=== PATIENT | male | born 1955 | race Caucasian/White ===

== ENCOUNTER 2017-01-15 08:58 | Inpatient (IN) ==
[2017-01-15] MEDS ORDERED: MORPHINE IV ONE (09:24)
[2017-01-15] MEDS ORDERED: ZOFRAN IV ONE (09:24)
[2017-01-15] MEDS ORDERED: NS 1,000 ML IV ONE ×2 (09:24→13:01)
[2017-01-15 09:39] LABS: MANUAL DIFF NEEDED? NO
[2017-01-15 10:01] LABS: BASO% 0.3 % (0.0-0.8); EOS# 0.03 X1000 (0.0-0.7); EOS% 0.5 % (0.0-10.0); HEMATOCRIT 39.7 % (42.0-52.0); HEMOGLOBIN 13.8 g/dL (14.0-18.0); LYMPH# 1.68 X1000 (1.2-3.4); LYMPH% 28.3 % (20.5-51.1); MCH 36.3 PG (27-31); MCHC 34.8 g/dL (33-37); MCV 104.5 FL (81-99); MONO# 0.75 X1000 (0.11-0.59); MONO% 12.6 % (1.7-9.3); MPV 10.2 FL (7.4-10.4); NEUT% 58.3 % (42.2-75.2); PLT 64 X1000 (130-400)
[2017-01-15 10:04] LABS: AGAP 14; ALBUMIN 3.4 g/dL (3.5-5.0); ALKALINE PHOSPHATASE 97 U/L (32-122); AMYLASE 62 U/L (20-200); BUN 12 mg/dL (8-22); CALCIUM 8.9 mg/dL (8.8-10.2); CHLORIDE 99 mmol/L (98-107); COSMO 282; GOT 89 U/L (10-34); GPT 50 U/L (10-44); LIPASE 37 U/L (13-60); MAGNESIUM 1.2 mg/dL (1.5-2.7); SODIUM 141 mmol/L (136-145); TCO2 28 mmol/L (25-35); TOTAL BILIRUBIN 1.84 mg/dL (0.20-1.00); TOTAL PROTEIN 8.1 g/dL (6.3-8.3)
[2017-01-15 10:34] LABS: URINE CULTURE NEEDED? NO; URINE SOURCE CLEAN CATCH
[2017-01-15 10:38] LABS: BILIRUBIN URINE SMALL (NEGATIVE); BLOOD URINE NEGATIVE (NEGATIVE); COLOR YELLOW; GLUCOSE URINE NEGATIVE (NEGATIVE); LEUKOCYTES URINE NEGATIVE (NEGATIVE); NITRITE URINE NEGATIVE (NEGATIVE); PH URINE 6.5; PROTEIN URINE 50 mg/dL (NEGATIVE); SP GRAVITY URINE 1.027; TURBIDITY URINE CLEAR (CLEAR); URINE MICRO REVIEW NEEDED? YES; UROBILINOGEN URINE 2 mg/dL (NORMAL)
[2017-01-15 10:40] LABS: UR EPITHELIAL CELLS >10 /HPF (<10); URINE BACTERIA NEGATIVE /HPF; URINE RBC <10 /HPF (<10); URINE WBC <10 /HPF (<10)
[2017-01-15 10:48] LABS: URINE CASTS GRANULAR PRESENT; URINE CRYSTALS NONE SEEN; URINE SMALL ROUND CELLS NONE SEEN
[2017-01-15 10:50] LABS: INR 1.33; PROTIME 14.2 Seconds (9.2-11.7); PTT 30.5 Seconds (22.0-36.0)
--- NOTE | 2017-01-15 12:04 | Diag Imaging Result Doc PS360 ---
EXAM: CT ABD/PELVIS W/ IV CONT ONLY - 01/15/2017 HISTORY: Abd pain TECHNIQUE: With intravenous contrast only per request of the referring provider. Dose reduction protocol. COMPARISON: CT pelvis of 03/16/2014. No comparison CT abdomen is available. FINDINGS: There is mild hepatosplenomegaly. The liver margins appear mildly coarse. These findings may relate to chronic hepatocellular disease (cirrhosis) with some portal hypertension. There is a 1.1 cm fluid density lesion in the liver which is compatible with cyst. There is no other focal liver lesion identified. The gallbladder is mildly distended. There are no calcified gallstones or pericholecystic inflammation identified. There is ill-defined stranding at the bilateral and midline retroperitoneum of the abdomen and pelvis. There are small to borderline retroperitoneal lymph nodes. There is no specific etiology for this identified. The pancreas shows no obvious inflammation. The stranding may be inflammatory or may relate to retroperitoneal fibrosis. There is no adrenal mass identified. The bilateral kidneys enhance homogeneously except for a small left renal cyst. There is no hydronephrosis. There is mild ectasia of the infrarenal abdominal aorta which measures 2.8 cm. There are atherosclerotic calcifications noted. There is no evidence of bowel obstruction. The appendix shows no obvious inflammation. There is no extraluminal gas collection or abscess identified. There is no free air identified. There is mild uncomplicated colonic diverticulosis. IMPRESSION: Mild hepatosplenomegaly and mildly coarse liver margins. This may relate to chronic hepatocellular disease/cirrhosis with mild portal hypertension. Correlation with clinical evaluation is recommended. Mildly distended gallbladder. No calcified gallstones or pericholecystic inflammation seen. Ill-defined inflammation or scarring at the bilateral and midline retroperitoneum. There is no specific etiology for this apparent. Retroperitoneal fibrosis is a possibility. No bowel obstruction. Mild uncomplicated colonic diverticulosis. No abscess. No free air. Electronically signed by Forrest Duffy 01/15/2017 12:02 PM
[2017-01-15] MEDS ORDERED: MAGNESIUM SULFATE 2 GM/S.W.I. 2 GM/50 ML IVPB IV ONE (12:08)
[2017-01-15] MEDS ORDERED: DILAUDID IV ONE (12:15)
[2017-01-15] MEDS ORDERED: LEVAQUIN 750 MG/D5W 750 MG/150 ML IVPB IV ONE (12:40)
[2017-01-15] MEDS ORDERED: FLAGYL 500 MG/NS 500 MG/100 ML IVPB IV ONE (12:40)
--- NOTE | 2017-01-15 12:43 | PROVIDER DOCUMENTATION ---
This chart was entered by Asim Rodríguez Scribe, acting as scribe for Selvin Lara MD. HPI-Abdominal Pain/GI Problem - General Chief Complaint: Abdominal Pain Stated Complaint: ABD PAIN,DIARRHEA X 4DAYS,FEVER Time Seen by Provider: 01/15/17 09:24 Source: patient, family Allergies/Adverse Reactions: Patient Allergies Allergy/AdvReac Type Severity Reaction Status Date / Time Penicillins AdvReac Severe RASH Verified 01/15/17 09:56 Home Medications: Home Medication List Medication Instructions Recorded Confirmed Last Taken Type Aspirin 325 mg PO QAM 09/04/13 01/15/17 1 Day Ago History Atorvastatin Calcium [Lipitor] 40 mg PO QAM 09/04/13 01/15/17 1 Day Ago History Metoprolol [Lopressor] 25 mg PO DAILY 09/04/13 01/15/17 1 Day Ago History Omeprazole [Prilosec] 40 mg PO QAM 09/04/13 01/15/17 1 Day Ago History - History of Present Illness-ABD Nature of Presenting Problems: 61 yo M presents to the ER with complaint of abdominal pain, N/V/D, and fever. PT states his fever was at 102 last night. PT has diarrhea x 3 days, abdominal pain x 1, and N/V x2 days. PT states he drinks 2-3 drinks a night. Abdominal Pain Onset Location: reports: suprapubic Pain Radiation: reports: no radiation Quality of Pain: reports: aching Severity in ED: reports: mild Onset/Duration: reports: 24 hours ago Timing: reports: still present Associated Symptoms: reports: diarrhea, loss of appetite, nausea, vomiting Last BM: 24 hours ago Dark Stools Present?: reports: none noticed Rectal Bleeding: reports: none # of Diarrhea Episodes: 5 (on Thursday) Rectal Pain: reports: none Emesis Description: reports: none Review of Systems - Adult - REVIEW OF SYSTEMS - ADULT Constitutional: reports: fever. denies: chills Cardiovascular: denies: chest pain, palpitations Respiratory: denies: cough, shortness of breath Gastrointestinal: reports: abdominal pain, diarrhea, nausea, poor appetite, vomiting Musculoskeletal: denies: back pain, neck pain All Other Systems: Reviewed and Negative Past History - Adult - PAST MEDICAL HISTORY-ADULT Review of Records: reports: Old Records Reviewed, Nursing Assessment Review, Medications Reviewed, Social history reviewed & non-contributory. Cardiovascular: reports: cardiac disease, hyperlipidemia Respiratory: reports: denies history Gastrointestinal: reports: denies history Genitourinary: reports: denies history Musculoskeletal: reports: denies history Neurological: reports: denies history Endocrine/Immune: reports: denies history Other Conditions: reports: denies history - PRIOR SURGERIES/PROCEDURES Surgical/Procedure History: reports: other (open heart surgery) - PRIOR HOSPITALIZATIONS Prior Hospitalizations: reports: none - IMMUNIZATION STATUS Childhood Immunizations: See Nurse Assessment Flu Vaccine: See Nurse Assessment - FAMILY HISTORY Family History: reviewed, not pertinent - SOCIAL HISTORY Alcohol Use Frequency: every day Physical Exam-General - PHYSICAL EXAM-ADULT Initial Vital Signs Reviewed: Yes - CONSTITUTIONAL General Appearance: appears well, alert, no apparent distress - NECK Neck: non-tender, full range of motion, supple - RESPIRATORY Respiratory: chest non-tender, lungs clear, normal breath sounds - CARDIOVASCULAR Cardiovascular: normal peripheral pulses, regular rate, rhythm - GASTROINTESTINAL (ABDOMEN) Abdominal Exam: normal bowel sounds, soft, tenderness - MUSCULOSKELETAL Extremity: normal range of motion, non-tender, normal gait - SKIN Integumentary: normal color, normal turgor Progress - PLAN OF CARE/RESULTS Progress/Plan/Lab Results: Vital Signs - 8 hr 01/15/17 09:14 Temperature 99.1 F Pulse Rate 81 Respiratory Rate 18 Blood Pressure 130/68 O2 Sat by Pulse Oximetry 100 Orders Category Date Time Status Saline Loc DIRECTED Care 01/15/17 09:24 Active NPO Diet 01/15/17 09:[address] ABD/PELVIS W/ IV CONT ONLY [CT] Stat Exams 01/15/17 09:24 Ordered AMYLASE [CHEM] Stat Lab 01/15/17 09:30 Received CBC WITH ELECTRONIC DIFF [HEME] Stat Lab 01/15/17 09:30 Results COMPREHENSIVE METABOLIC PANEL [CHEM] Stat Lab 01/15/17 09:30 Received LIPASE [CHEM] Stat Lab 01/15/17 09:30 Received MAGNESIUM [CHEM] Stat Lab 01/15/17 09:30 Received URINALYSIS W/POSS RFLX CULT-1 [URINALYSIS] Stat Lab 01/15/17 09:24 Uncollected 0.9% Sodium Chloride Inj [Ns] 1,000 ml Med 01/15/17 09:24 Active IV 999 mls/hr Morphine Med 01/15/17 09:24 Discontinued 4 mg IV NOW ONE Ondansetron [Zofran] Med 01/15/17 09:24 Discontinued 4 mg IV NOW ONE Result Diagrams: 01/15/17 09:30 01/15/17 09:30 - CT/MRI 1 CT Study: Abdomen, Pelvis Impression: Abnormal (mild hepatosplenomegaly and mildy coarse liver margins, may relate to chronic heptaocellular disease/cirrohsis with mild portal hypertension. Mildy distended gallbladder, no calcified gallstones of pericholecystic inflammation. No bowel obstruction.) - CONSULTS/PCP/HOSPITALIST Notification #1 *Consult/PCP/Hospitalist*: Asim/Dr. Bello Time Discussed: 12:42 Consult Disposition: Will see in ED, Admit Departure - Departure Date of Disposition Decision: 01/15/17 Time of Disposition Decision: 12:41 DIAGNOSIS: Continuous severe abdominal pain, Abnormal liver function Disposition: ADMITTED INPATIENT 09 Certified Medical Emergency: Emergent Condition: Stable Referrals and Follow-Ups: Omar Mandujano MD [Primary Care Provider] - - Critical Care Note This patient required my direct & personal management of CC.: No This chart was documented by the indicated scribe, (Asim Rodríguez Scribe) and accurately reflects the services I performed and decisions made by me, Selvin Lara MD, as attested by the provider's signature.
[2017-01-15] MEDS ORDERED: NS 1,000 ML IV SCH (13:01)
[2017-01-15 13:39] LABS: HEMOGLOBIN A1C 5.2 % (4.8-6.0)
[2017-01-15 13:53] LABS: UR AMPHETAMINES QUAL NONE DETECTED (NONE DETECT); UR BARBITUATES QUAL NONE DETECTED (NONE DETECT); UR BENZODIAZEPIN QUAL NONE DETECTED (NONE DETECT); UR CANNABINOIDS QUAL NONE DETECTED (NONE DETECT); UR COCAINE QUAL NONE DETECTED (NONE DETECT); UR METHADONE QUAL NONE DETECTED (NONE DETECT); UR OPIATES QUAL PRESUMPTIVE POSITIVE (NONE DETECT); UR OXYCODONE QUAL NONE DETECTED (NONE DETECT); UR PCP QUAL NONE DETECTED (NONE DETECT)
[2017-01-15] MEDS: M.V.I.-12 10 ML, FOLIC ACID 1 MG, MAGNESIUM SULFATE 1 GM, THIAMINE 100 MG in NS 1,000 ML IV SCH (14:00)
[2017-01-15] MEDS ORDERED: SODIUM CHLORIDE 0.9% 10 ML ONE (14:12)
[2017-01-15] MEDS ORDERED: NS 1,000 ML ONE (14:13)
[2017-01-15] MEDS: PROTONIX IV SCH (14:20)
[2017-01-15 14:30] LABS: ACETAMINOPHEN < 1.2 ug/mL (10-30)
[2017-01-15 14:31] LABS: HDL 18 mg/dL (35-55); IRON SATURATION 20 %; LDL 67 mg/dL; TIBC 227 ug/dL; TOTAL IRON 46 ug/dL (53-167); TRIGLYCERIDES 113 mg/dL (39-160); UNBOUND IRON 181 ug/dL (112-346); VLDL 23 mg/dL
--- NOTE | 2017-01-15 15:05 | Diag Imaging Result Doc PS360 ---
EXAM: CHEST-2 VIEWS HISTORY: wheezing TECHNIQUE: COMPARISON: 09/04/2013 FINDINGS: The lungs are well expanded. The heart is not enlarged. The vessels are not distended. There are no infiltrates. Sternal wires are present. No pleural effusions. IMPRESSION: No acute abnormality. Electronically signed by Azeem Tang 01/15/2017 3:03 PM
--- NOTE | 2017-01-15 15:27 | HISTORY AND PHYSICAL ---
PRIMARY CARE PHYSICIAN: Dr. Omar Mandujano. CHIEF COMPLAINT: Abdominal pain. HISTORY OF PRESENT ILLNESS: Mr. Qureshi is a 61-year-old male with a history of alcohol dependence, coronary artery disease status post bypass grafting, hypertension, hyperlipidemia, who presents to the ER with acute worsening of chronic abdominal pain that started on Thursday. Patient reports that he has been having abdominal pain over the past 2 years, but acutely worsened on Thursday. He describes generalized abdominal pain, but does specifically point to the left lower quadrant. The pain is constant and sharp in nature. It is nonradiating. He has had some associated nausea, vomiting, and diarrhea, more diarrhea than vomiting, but he denies any hematemesis or hematochezia. He denies any melena. He does report that he has had a fever of 102 degrees Fahrenheit last night. He also reports that he has had antibiotic usage completed around 2-3 weeks ago. He had antibiotics for a dental procedure. He denies any chest pain, reports chronic shortness of breath and occasional lower extremity edema. He came to the ER today for evaluation. His labs showed elevated INR, liver function tests and anemia/ thrombocytopenia. CT of the abdomen and pelvis was done and this revealed hepatosplenomegaly, which may relate to chronic hepatocellular disease, Cirrhosis with mild portal hypertension. There was a mildly distended gallbladder, but no evidence of cholecystic inflammation or gallstones and there was also ill-defined inflammation and scarring at the bilateral midline retroperitoneum. As such, the patient is going to be admitted for further treatment and evaluation. PAST MEDICAL HISTORY: 1. Alcohol dependence. 2. Coronary artery disease, status post bypass grafting followed by Dr. Sylvester at the [facility]. 3. Hypertension. 4. Hyperlipidemia. 5. Distant history of atrial fibrillation. 6. Mild LV dysfunction. Last echocardiogram done June of last year showed an EF of 50% with septal hypokinesis. PAST SURGICAL HISTORY: 1. CABG. 2. Hernia repair. SOCIAL HISTORY: Patient reports drinking 3 or more liquor drinks a night. He denies drug use. He has a remote history of smoking. His is at the bedside. Unfortunately , his son committed suicide earlier this year which he reports is causing him significant distress. FAMILY HISTORY: Significant for CAD and CHF. REVIEW OF SYSTEMS: A 14 point review of systems obtained and found to be negative with the exception of the HPI. ALLERGIES: Penicillin. HOME MEDICATIONS: Aspirin 325 mg a.m. Lipitor 40 mg p.o. a.m. Lopressor 25 mg daily. Prilosec 40 mg a.m. PHYSICAL EXAMINATION: VITAL SIGNS: Blood pressure is 130/68, heart rate is 81, respiratory rate 18, O2 saturation 100% on room air. Temperature is 99.1 degrees. GENERAL: This is a chronically ill and disheveled-appearing 61-year-old male, lying in hospital bed in no acute distress. NEUROLOGIC: The patient is awake, alert, and oriented. He follows commands without focal deficits. HEENT: Head is atraumatic and normocephalic. His pupils are equal, round, reactive to light. Sclera are anicteric. Oral mucosa is a bit dry. Trachea is midline. No JVD. No carotid bruits. CHEST: Diminished at the bases with faint expiratory wheezing. CARDIOVASCULAR: Regular rate and rhythm. S1-S2 is noted. There is a 1/6 systolic ejection murmur noted. GI: Diffusely tender. Hepatomegaly noted in the right upper quadrant. No distention. Bowel sounds are hypoactive. EXTREMITIES: Trace edema. Pulses diminished, but palpable bilaterally. DIAGNOSTIC DATA: CT of the abdomen and pelvis: Please see HPI. WBC 5.94, hemoglobin 13.8, hematocrit 39.7, MCV 104.5, platelet count 64,000. PT 14.2, INR 1.33, sodium 141, potassium 4, chloride 99, CO2 28, anion gap 14, BUN 12, creatinine 0.8, glucose 115, magnesium 1.2, iron 46, TIBC 2-7%. Saturation is 20, unsaturated iron binding is 181, T bilirubin 1.4. AST 89, ALT 50, alkaline phosphatase 97, albumin 3.4. Lipase 37. Lactate 1.4. Urine does not show anything acute. Drug screen positive for opiates. ASSESSMENT/PLAN: 1. Abdominal pain: Differential diagnoses are broad and include gastritis, duodenitis, peptic ulcer disease, duodenal ulcer disease, alcoholic hepatitis, viral hepatitis, gastroenteritis, C. difficile pancolitis. A CT of the abdomen and pelvis has already been ordered and shows multiple nonspecific findings, but nothing acute. We will order a right upper quadrant ultrasound and check labs for Tylenol, salicylates, viral hepatitis, alcohol level, drug screen, thyroid function, B12 and folate. We will also check stool studies for typical pathogens, including ova parasites, C. difficile, as well as WBC culture and white cells in the stool. We will keep him nothing per oral, and add IV fluid hydration, pain medications and antiemetics. He has been given a dose of Levaquin and Flagyl in the emergency room. We will hold off on any more antibiotics as he is not febrile, nor does he have leukocytosis or tachycardia. 2. Nausea, vomiting, diarrhea: As above. We will check stool studies for C. difficile given his somewhat recent antibiotic usage. 3. Elevated liver function tests: Again, this is likely secondary to his alcohol use, but comprehensive studies are underway and Gastroenterology has been consulted. 4. Thrombocytopenia: Again, this is likely secondary to chronic alcohol and liver disease, but we are ordering thyroid, B12, folate and comprehensive iron studies. We will follow up on labs and treat accordingly. 5. Coronary artery disease with mild left ventricular dysfunction: Patient reports same Dr. Sylvester in the last 6 months. He does have an echocardiogram done in June, which showed an ejection fraction of 50% with septal wall hypokinesis. We will check a chest x-ray and electrocardiogram and monitor telemetry. He denies any chest pain, but we will go ahead and order a set of cardiac enzymes as well. We will also get a proBNP. 6. Hypertension and hyperlipidemia: We will continue his home medications. Check a lipid panel. 7. Alcohol dependence: Patient has been highly advised to quit drinking. We counseled him strongly on alcohol cessation as this is the likely cause of his admission. The patient was reluctant that he needed help and that he could quit on his own. We explained to him that we can assist him with resources to Alcoholics Anonymous or with clinical social worker. We will continue this education daily. 8. Deep venous thrombosis prophylaxis will be provided with Sequential Compression Devices and TEDs given his thrombocytopenia and elevated liver function tests. Further recommendations to follow. Dictated by YUNI Green for Argentina Bello MD cc: YUNI Green MD David Francis, MD The patient was seen and examined by me. I agree with the assessment and plan as dictated. DAVID
[2017-01-15 15:29] LABS: FREE T4 0.69 ng/dL (0.93-1.70)
--- NOTE | 2017-01-15 16:35 | Diag Imaging Result Doc PS360 ---
EXAM: US ABDOMEN-COMPLETE - 01/15/2017 HISTORY: abdominal pain/elevated lfts TECHNIQUE: Ultrasound abdomen complete COMPARISON: Earlier CT abdomen from today FINDINGS: The liver demonstrates homogeneous echotexture. There is mild splenomegaly. The gallbladder is mildly distended. The gallbladder swanson are possibly slightly thickened. There is no pericholecystic fluid seen. There is no evidence of gallstones. The technologist reports negative sonographic Ramirez's sign. The common bile duct is normal caliber at 4 mm. There is no ascites seen. There are no abnormalities of the bilateral kidneys identified. Visualized portions of the pancreas are unremarkable. The aorta is largely obscured by bowel gas artifacts. The visualized IVC is unremarkable. IMPRESSION: Mild splenomegaly. No visible liver lesion. Mildly distended gallbladder. Slightly thickened gallbladder swanson. No pericholecystic fluid. No evidence of gallstones. Normal caliber common bile duct at 4 mm. Electronically signed by Forrest Duffy 01/15/2017 4:33 PM
[2017-01-15] MEDS: MORPHINE IV PRN ×2 (16:48→21:31)
--- NOTE | 2017-01-15 16:51 | EKG Report ---
Test Performed on : 01/15/2017 2:52:35 PM Test Reason : sob Blood Pressure : / mmHG Vent. Rate : 095 BPM Atrial Rate : 095 BPM P-R Int : 130 ms QRS Dur : 102 ms QT Int : 380 ms P-R-T Axes : 062 000 048 degrees QTc Int : 477 ms Normal sinus rhythm. Cannot rule out Anterior infarct , age undetermined Abnormal ECG No previous ECGs available Confirmed by Dwayne SIMMONS, Vinay Cuevas ([id number]) on 01/16/2017 9:14:17 AM
[2017-01-15 19:32] LABS: MANUAL DIFF NEEDED? NO
[2017-01-15 19:48] LABS: BASO% 0.1 % (0.0-0.8); EOS# 0.01 X1000 (0.0-0.7); EOS% 0.1 % (0.0-10.0); HEMOGLOBIN 13.6 g/dL (14.0-18.0); LYMPH# 1.81 X1000 (1.2-3.4); MCH 36.3 PG (27-31); MCHC 34.9 g/dL (33-37); MONO# 0.96 X1000 (0.11-0.59); MONO% 11.7 % (1.7-9.3); MPV 10.3 FL (7.4-10.4); NEUT% 66.1 % (42.2-75.2); PLT 62 X1000 (130-400); RBC 3.75 XMIL (4.7-6.1)
[2017-01-15 20:00] LABS: AGAP 14; ALBUMIN 3.2 g/dL (3.5-5.0); ALKALINE PHOSPHATASE 77 U/L (32-122); BUN 12 mg/dL (8-22); CALCIUM 8.1 mg/dL (8.8-10.2); CHLORIDE 97 mmol/L (98-107); COSMO 267; GOT 74 U/L (10-34); GPT 42 U/L (10-44); POTASSIUM 3.6 mmol/L (3.5-5.1); SODIUM 133 mmol/L (136-145); TCO2 22 mmol/L (25-35); TOTAL BILIRUBIN 1.84 mg/dL (0.20-1.00); TOTAL PROTEIN 7.5 g/dL (6.3-8.3)
[2017-01-15] MEDS: FLAGYL 250 MG/NS 250 MG/50 ML IVPB IV SCH (20:09)
[2017-01-15] MEDS: NS 1,000 ML IV SCH ×2 (21:18→23:51)
--- NOTE | 2017-01-15 21:58 | CONSULTATION ---
DATE OF CONSULTATION: 01/15/2017 REFERRING PHYSICIAN: Argentina Bello M.D. PRIMARY CARE PROVIDER: Omar Mandujano M.D. INDICATION FOR CONSULTATION: 1. Nausea with vomiting. 2. Diarrhea. 3. Abdominal pain. 4. Abnormal CT scan. 5. Abnormal ultrasound with gallbladder thickening. 6. Iron-deficiency anemia. 7. Newly diagnosed cirrhosis. 8. Newly diagnosed portal hypertension on CT scan. 9. Hepatosplenomegaly. 10. New retroperitoneal fibrosis. 11. Fever. 12. Diverticulosis. HISTORY OF PRESENT ILLNESS: The patient is a 61-year-old white male who has a longstanding history of alcohol dependence. He states that he underwent an EGD and colonoscopy in 2014 by Angelita Muñiz MD. At that time, he was found to have diverticulitis and reflux disease. He states that he was unhappy with that diagnosis as he had a family member who lost part of their colon secondary to severe diverticulitis. He was then evaluated by Timothy Crain MD who found colon polyps in his left colon. He states that following his endoscopy in [address] Crain, he developed left lower quadrant pain that has been chronic over the last 2 years. In the last week, he states the pain has been significantly worse to the point that he was unable to sit or move. He also had the onset of nausea with vomiting, diarrhea, fever and chills. At home, his temperature reached a peak of 102-103 degrees. He was also recently on antibiotics for a dental procedure approximately 2 weeks prior to his admission. He presented to the emergency room and was found to have an elevated PT and INR. On CT scan, he was noted to have mild hepatosplenomegaly, chronic hepatic cellular disease consistent with cirrhosis, portal hypertension, mild gallbladder distention, but no stones, stranding in the retroperitoneal area consistent with fibrosis, borderline retroperitoneal lymph nodes, left renal cyst, an ectatic infrarenal abdominal aortic aneurysm to 2.8 cm and mild uncomplicated diverticulosis. On ultrasound, he was found to have mild hepatosplenomegaly as noted on the CT scan , mildly distended gallbladder with thickened gallbladder swanson, but no pericholecystic fluid. There was no evidence of gallstones. His serum chemistries were notable for mild anemia with thrombocytopenia, an INR of 1.33, and elevated liver function tests. We are asked to participate in his care. PAST MEDICAL HISTORY: 1. Remarkable for chronic alcohol use. He states that he drinks 3 vodka in juice drinks per day averaging 3-4 ounces per drink. His daily intake typically averages about 10 ounces of vodka per day and he has consumed this quantity for over 40 years. 2. Chronic tobacco use in the past where he smoked 3 packs per day for 27-28 years. He stopped smoking approximately 26 years ago. 3. Coronary artery disease status post bypass. His critical care physician is Dr. Francisco Javier Sylvester at the [facility]. 4. Hypertension. 5. Hyperlipidemia. 6. History of atrial fibrillation. 7. Left ventricular dysfunction. 8. Diverticulosis. 9. Colon polyps. 10. Hemorrhoids. 11. GERD. PAST SURGICAL HISTORY: 1. CABG. 2. Hiatal hernia repair. SOCIAL HISTORY: The patient drinks vodka with orange juice at least 6-7 days per week. He consumes approximately 10 ounces of vodka per day. He denies recreational drug use. He has a remote smoking history as noted above. His and daughter are at bedside. They report that his alcohol intake has increased considerably since August to September as his son committed suicide and has resulted in significant increase in the patient's stress level. FAMILY HISTORY: Remarkable for coronary artery disease. Congestive heart failure. He denies a history of colon cancer, stomach cancer, or inflammatory bowel disease. REVIEW OF SYSTEMS: Remarkable for nausea with vomiting, diarrhea, abdominal pain, fatigue and concerns for diverticulitis as his pain is primarily in the left lower quadrant. MEDICATION ALLERGIES: Penicillin. HOME MEDICATIONS: 1. Aspirin. 2. Lipitor. 3. Lopressor. 4. Prilosec. PHYSICAL EXAMINATION: General: On exam, he is in no acute distress but is very uncomfortable. Vital signs: His blood pressure is 137/53, pulse is 91-100, respiration 20, temperature of 102.4 degrees. He has active chills and rigors during the exam. HEENT: Negative for jaundice. His oropharyngeal mucosa membranes are dry. Pulmonary: Lungs are clear to auscultation with normal expiratory effort. Cardiovascular: Reveals a resting tachycardia with a pulse rate of 100 at the time of my exam. Abdominal: Reveals hyperactive bowel sounds. The abdomen is soft with moderate left lower quadrant tenderness, but no rebound or guarding. Rectal: Deferred. It should be noted that the patient was incontinent during our exam. Extremities: Bilaterally are negative for cyanosis, clubbing, or edema. OBJECTIVE DATA: Reveals a hemoglobin of 13.8 with hematocrit of 39.7, and a white count of 5.94. He has 64,000 platelets. His PT is 14.2 with an INR of 1.33, and a PTT of 30.5. His sodium is 141, potassium 4, chloride 99, CO2 28, BUN 12, creatinine 0.8 with a glucose of 115. His calcium is 8.9, magnesium 1.2, total bilirubin 1.84, AST 89, ALT 50, alkaline phosphatase 97, total protein 8.1 and albumin 3.4. His ferritin is 854 and his iron is 46, consistent with iron deficiency anemia. His B12 level is 386 with a folic acid of 11.4, and a TSH of 1.32. His plasma lactate is 1.4. IMPRESSION: 1. Nausea with vomiting. 2. Diarrhea. 3. Left lower quadrant pain. 4. Alcohol abuse. 5. Elevated liver function tests. 6. Gallbladder thickening on ultrasound and computed tomography scan. 7. Fever. 8. New retroperitoneal fibrosis. 9. Hepatosplenomegaly. 10. Cirrhosis. 11. Portal hypertension. 12. Iron-deficiency anemia. 13. Diverticulosis. RECOMMENDATION: 1. The patient has multiple gastrointestinal concerns. Because of his fever and diarrhea, I would submit stool for stool studies for Clostridium difficile colitis as he was recently treated with antibiotics. I visualized the stool that the patient passed while I was performing his history and physical. It is mucoid and foul smelling with a tinge of blood. 2. Once the stool studies have been submitted, I would begin Levaquin and Flagyl for treatment for diverticulitis versus colitis versus Clostridium difficile. 3. Please also check blood cultures, stool cultures, fecal white blood cell, ova and parasite and stool lactoferrin. 4. Please check a C-reactive protein, repeat a complete blood count and complete metabolic panel. 5. Because of the elevated liver function tests, I would check a hepatitis profile. He will also need a HIDA scan to rule out acute cholecystitis. 6. The patient has a longstanding history of alcohol abuse. Therefore, I agree with the vitamin supplementation, particularly thiamine and folate. I would monitor for withdrawals and delirium tremors. 7. With regard to his elevated liver function tests, our evaluation will depend on the trend. If his liver tests continue to rise, he may need a possible endoscopic retrograde cholangiopancreatography once we have the results of his HIDA scan. 8. The peritoneal fibrosis seen on computed tomography is of unknown significance. Because of the patient's other issues, I would reassess that in 1-2 days. 9. The patient has iron-deficiency anemia. Once the acute febrile process has been treated, I recommend a repeat esophagogastroduodenoscopy and colonoscopy, especially in light of his history of colon polyps. 10. He has unexplained hepatosplenomegaly. His evaluation will depend on the results of his aforementioned testing. 11. Please check a C-reactive protein daily to assess his degree of inflammation. 12. Please monitor daily PT/INR in light of his ongoing liver disease. 13. I agree with Protonix 40 mg IV q.12 hours. If he has a drop in hemoglobin, I would have a low threshold for transitioning this to a Protonix drip. 14. The patient has severe abdominal cramps with the diarrhea. I would place him on Levsin 0.125 mg sublingual to help control the abdominal spasms as I suspect an IBS component. 15. Please consult Surgery as he may require a cholecystectomy in the near future depending on the results of his ongoing evaluation. 16. Additional recommendations to follow based on his clinical course. More than 65 minutes spent with the patient, family and involved in the patient' s direct evaluation and assessment. cc: MD Argentina Che MD David Francis, MD Jason R. Seale, MD MTDD
--- NOTE | 2017-01-15 22:07 | CONSULTATION ---
DATE OF CONSULTATION: 01/15/2017 REASON FOR CONSULTATION: Abdominal pain. HISTORY OF PRESENT ILLNESS: This is a 61-year-old male with known chronic daily left lower quadrant pain for 2 years which is usually relieved after bowel movements who was in his usual state of health until 4 days ago when he started experiencing severe diarrhea up to 10 times per day, along with intermittent fevers, chills and increasing left lower abdominal pain radiating across to his right side. No relieving factors. It is worsened to movement or pressure on it. It is not actually relieved with bowel movements. He has not noticed any blood in his bowel movements. Of note, he did take some antibiotics several weeks ago for a tooth infection and he cannot recall the name of it. PAST MEDICAL HISTORY: Alcohol abuse, coronary artery disease, hypertension, hyperlipidemia, atrial fibrillation, left ventricular dysfunction, chronic intermittent low back pain PAST SURGICAL HISTORY: Coronary artery bypass grafting. Hernia repair. HOME MEDICATIONS: Aspirin, Lipitor, Lopressor, Prilosec. ALLERGIES: Penicillin. FAMILY HISTORY: Coronary artery disease and congestive heart failure. SOCIAL HISTORY: He drinks several alcoholic drinks of hard liquor every day. He denies illicit drug use. He quit smoking years ago. He is . He has son who apparently committed suicide earlier this year. 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 REVIEW OF SYSTEMS: Ten systems reviewed. He does have chronic lobe intermittent low back pain. Otherwise, the systems were reviewed and are negative except as noted above. PHYSICAL EXAMINATION: Vital Signs: Temperature 98.6 degrees, pulse 102, respirations 18, blood pressure 129/62. General: Well-developed well-nourished male who looks ill, but nontoxic appearing. HEENT: Normocephalic, atraumatic. Extraocular muscles intact. Pupils equal, round, reactive to light. Sclerae anicteric. Neck: Supple. No thyromegaly. CARDIOVASCULAR: Tachycardic and regular. Respiratory: Bilateral breath sounds. No work of breathing. Gastrointestinal: Soft, nondistended. He is tender across his lower abdomen more focally in the left lower quadrant. No rebound or guarding. No hernia or mass appreciated. Skin: He feels febrile, but he is not clammy. Extremities: No clubbing, cyanosis, or edema. Musculoskeletal: Moves all extremities equally and well. LABORATORY: White blood cell count 8. Hemoglobin 13.6, platelet count 62,000. INR 1.3, sodium 133, potassium 3.6, chloride , BUN 12, creatinine 0.9, glucose 107, total bilirubin 1.8, AST 74, ALT 42, alkaline phosphatase 77, total bilirubin 1.8. Albumin 3.2. Amylase 62, lipase 37, lactate 1.4. IMAGING: An abdominal and pelvis CT scan was reviewed by me and the imaging and report indicate a mildly distended gallbladder without stones or surrounding pericholecystic inflammation. There is mild hepatosplenomegaly with possible portal hypertension. There is some vague inflammatory stranding or scarring bilaterally and across the midline in the retroperitoneum possibly due to retroperitoneal fibrosis. There is no bowel obstruction. No diverticulitis, abscess, free air, et cetera. Abdominal ultrasound was reviewed and again, the gallbladder was mildly distended with possibly some slightly thickened swanson; however, there is no pericholecystic fluid and no evidence of gallstones. The sonographic Ramirez sign was negative. The common bile duct is normal. There is no ascites. There is mild splenomegaly and no visible liver lesion. Microbiology data: A C. difficile antigen and toxin is positive. ASSESSMENT AND PLAN: This is a 61-year-old male with Clostridium difficile colitis. At this time, I would characterize this as a moderate case without complication requiring surgical intervention. I think he is at higher risk secondary to his chronic alcohol abuse and likely cirrhosis. He is on intravenous Flagyl. I think we should have a low threshold to add oral vancomycin if he does not respond soon. Levaquin could probably be stopped. I will follow along for any worsening of disease or complications that may or may not develop. cc: Miguel Rivas MD
[2017-01-15] MEDS: LIBRIUM PO SCH (22:54)
[2017-01-15] MEDS: ATIVAN IV PRN (22:56)
[2017-01-16] MEDS: PROTONIX IV SCH ×2 (01:15→14:26)
[2017-01-16] MEDS: FLAGYL 250 MG/NS 250 MG/50 ML IVPB IV SCH ×4 (01:15→19:53)
[2017-01-16] MEDS: MORPHINE IV PRN ×5 (01:17→22:18)
[2017-01-16] MEDS: ATIVAN IV PRN ×3 (04:33→20:02)
[2017-01-16] MEDS: LIBRIUM PO SCH ×4 (04:33→22:18)
[2017-01-16 05:52] LABS: HEMATOCRIT 37.1 % (42.0-52.0); HEMOGLOBIN 12.9 g/dL (14.0-18.0); MCH 36.4 PG (27-31); MCHC 34.8 g/dL (33-37); MCV 104.8 FL (81-99); MPV 10.7 FL (7.4-10.4); RBC 3.54 XMIL (4.7-6.1)
[2017-01-16] MEDS ORDERED: PNEUMOVAX 23 IM ONE (06:07)
[2017-01-16 06:11] LABS: AGAP 15; ALBUMIN 3.1 g/dL (3.5-5.0); ALKALINE PHOSPHATASE 68 U/L (32-122); BUN 17 mg/dL (8-22); CALCIUM 7.8 mg/dL (8.8-10.2); CHLORIDE 98 mmol/L (98-107); COSMO 272; GOT 63 U/L (10-34); GPT 36 U/L (10-44); POTASSIUM 3.4 mmol/L (3.5-5.1); SODIUM 135 mmol/L (136-145); TCO2 22 mmol/L (25-35); TOTAL BILIRUBIN 2.03 mg/dL (0.20-1.00); TOTAL PROTEIN 7.1 g/dL (6.3-8.3)
[2017-01-16] MEDS: LOPRESSOR PO SCH (08:02)
--- NOTE | 2017-01-16 08:49 | Diag Imaging Result Doc PS360 ---
EXAM: ABDOMEN FLAT/UPRIGHT HISTORY: abdominal pain TECHNIQUE: Flat and upright abdomen two views COMMENT: There is some retained contrast medium in the urinary bladder. The bowel gas pattern is nonspecific. There is no evidence organomegaly or mass. IMPRESSION: Nonspecific abdomen. Electronically signed by Albert Chopra 01/16/2017 8:47 AM
[2017-01-16] MEDS: LEVSIN-SL SL SCH ×3 (09:22→17:23)
[2017-01-16 10:01] LABS: HEPATITIS PROFILE ACUTE SEE COMMENTS
[2017-01-16] MEDS: VANCOCIN PO SCH ×3 (10:26→19:53)
[2017-01-16] MEDS: CULTURELLE PO SCH ×2 (10:30→20:02)
--- NOTE | 2017-01-16 12:42 | PROGRESS NOTE ---
DATE: 01/16/2017 SUBJECTIVE: The patient says he feels some better. He continues to have frequent diarrhea. OBJECTIVE: He is afebrile this morning. Pulse 73, respirations 18, blood pressure 111/59, O2 saturation 98%.General: Well-developed male in no distress. He looks his stated age. CV: Regular rate and rhythm. Respiratory: No work of breathing. GI: Soft. Mildly tender in the left lower quadrant. No rebound or guarding. Nondistended. LABORATORY: White blood cell count 9.5, hemoglobin 12.9. Electrolytes are reviewed and unremarkable. Total bilirubin 2.0. IMAGING: An abdominal x-ray today shows a nonspecific bowel-gas pattern. ASSESSMENT AND PLAN: This is a 61-year-old male with Clostridium difficile colitis. He is being treated with IV Flagyl and oral vancomycin. I think we can advance his diet over the weekend as tolerated. There are no surgical plans at this time. cc: Miguel Rivas MD
[2017-01-16] MEDS ORDERED: LEVAQUIN 750 MG/D5W 750 MG/150 ML IVPB IV SCH (13:00)
[2017-01-16] MEDS ORDERED: NS 1,000 ML ONE (14:11)
--- NOTE | 2017-01-16 14:11 | PROGRESS NOTE ---
DATE: 01/16/2017 SUBJECTIVE: The patient complains of continued episodes of diarrhea. There are 7 episodes recorded in the chart. OBJECTIVE: Vital Signs: Temperature 98.7 degrees, blood pressure 111/59, heart rate 73, respirations 18, O2 saturations 98% on room air. General: This is an elderly male, lying in bed, in no acute distress. Head: Normocephalic atraumatic. Heart: S1, S2. Normal. Regular rate and rhythm. Lungs: Clear to auscultation bilaterally. No crackles. No rales. Abdomen: Positive bowel sounds. Soft, nontender, nondistended. Extremities: No edema. No cyanosis. No calf tenderness. Neurologic: The patient is alert and oriented x3. No focal neurologic deficits noted. LABS: White blood cell count 9.5, hemoglobin 12, hematocrit 37, platelets 64,000. Sodium 135, potassium 3.4, chloride 98, CO2 24, BUN 17, creatinine 1, glucose 113, calcium 7.8. Total bilirubin 2, AST 63, ALT 236, alkaline phosphatase 68, albumin 3.1. ASSESSMENT AND PLAN: 1. C. difficile colitis. Continue on Flagyl and oral vancomycin. Will also add lactobacillus. GI is following. 2. Chronic thrombocytopenia. Most likely secondary to the patient's underlying liver disease. 3. Alcoholic liver cirrhosis. Aware. 4. Portal hypertension with splenomegaly. Aware. 5. Hypokalemia. Will replace the patient's potassium. 6. Alcohol dependence. The patient has been counseled about alcohol cessation. The patient will be started on Librium. We will monitor the patient closely for withdrawal. 7. Gastrointestinal prophylaxis. Continue on IV Protonix. cc: Argentina Bello MD
[2017-01-16] MEDS: SODIUM CHLORIDE 0.9% INJ SCH (14:26)
[2017-01-16] MEDS: NS 1,000 ML IV SCH (14:27)
[2017-01-16] MEDS: M.V.I.-12 10 ML, FOLIC ACID 1 MG, MAGNESIUM SULFATE 1 GM, THIAMINE 100 MG in NS 1,000 ML IV SCH (14:30)
[2017-01-17] MEDS: ATIVAN IV PRN ×3 (00:47→10:26)
[2017-01-17] MEDS: PROTONIX IV SCH ×2 (00:48→14:25)
[2017-01-17] MEDS: SODIUM CHLORIDE 0.9% INJ SCH ×2 (00:48→14:25)
[2017-01-17] MEDS: NS 1,000 ML IV SCH ×3 (00:54→22:35)
[2017-01-17] MEDS: VANCOCIN PO SCH ×4 (00:59→22:34)
[2017-01-17] MEDS: FLAGYL 250 MG/NS 250 MG/50 ML IVPB IV SCH ×4 (00:59→22:34)
[2017-01-17] MEDS: MORPHINE IV PRN ×4 (02:31→18:54)
[2017-01-17] MEDS: LIBRIUM PO SCH ×4 (05:15→22:34)
[2017-01-17 07:09] LABS: HEMATOCRIT 35.1 % (42.0-52.0); HEMOGLOBIN 11.9 g/dL (14.0-18.0); MCH 36.8 PG (27-31); MCHC 33.9 g/dL (33-37); MCV 108.7 FL (81-99); RBC 3.23 XMIL (4.7-6.1)
[2017-01-17 07:19] LABS: AGAP 11; ALBUMIN 2.7 g/dL (3.5-5.0); ALKALINE PHOSPHATASE 62 U/L (32-122); BUN 19 mg/dL (8-22); CALCIUM 7.3 mg/dL (8.8-10.2); CHLORIDE 102 mmol/L (98-107); COSMO 274; GOT 53 U/L (10-34); GPT 30 U/L (10-44); POTASSIUM 3.3 mmol/L (3.5-5.1); SODIUM 136 mmol/L (136-145); TCO2 23 mmol/L (25-35); TOTAL BILIRUBIN 2.37 mg/dL (0.20-1.00); TOTAL PROTEIN 6.6 g/dL (6.3-8.3)
[2017-01-17] MEDS ORDERED: KLOR-CON PO ONE (07:39)
[2017-01-17] MEDS: LOPRESSOR PO SCH (08:08)
[2017-01-17] MEDS: CULTURELLE PO SCH ×2 (08:08→22:34)
[2017-01-17] MEDS: LEVSIN-SL SL SCH ×3 (08:08→22:34)
[2017-01-17] MEDS ORDERED: CALCIUM GLUCONATE 1 GM in NS 50 ML IV ONE (10:46)
[2017-01-17] MEDS: M.V.I.-12 10 ML, FOLIC ACID 1 MG, MAGNESIUM SULFATE 1 GM, THIAMINE 100 MG in NS 1,000 ML IV SCH (14:24)
--- NOTE | 2017-01-17 15:25 | PROGRESS NOTE ---
DATE: 01/17/2017 Mr. Noe Qureshi is a 61-year-old white male who was admitted with abdominal distention and pain. He also had diarrhea and it has been discovered that he has C. difficile colitis. He is being treated for this with Flagyl and vancomycin and symptomatically he is improving daily. He was given a regular diet today. Please notify us if needed. cc: Erma Galeano MD
--- NOTE | 2017-01-17 17:00 | PROGRESS NOTE ---
DATE: 01/17/2017 SUBJECTIVE: The patient is resting comfortably in bed. No acute events noted overnight. The patient states that the frequency of his stools has decreased and it is firming up a little bit. OBJECTIVE: Vital signs: Temperature 97.9, blood pressure 94/60, heart rate 68 , respirations 17, O2 saturation 95% on room air. General: This is an elderly male sitting up in bed in no acute distress. Head: Normocephalic, atraumatic. Heart: S1, S2 normal. Regular rate and rhythm. Lungs: Clear to auscultation bilaterally. No wheezing. No rales. No rhonchi. Abdomen: Positive bowel sounds. Soft, obese, nontender, nondistended. Extremities: No edema. No cyanosis. No calf tenderness. Neurologic: The patient is alert and oriented x3. LABORATORY DATA: White blood cell count 6.5, hemoglobin 11, hematocrit 35, platelets 58. Sodium 136, potassium 3.6, chloride 102, CO2 of 23, BUN 9. Magnesium 1.8. Calcium 7.8. Total bilirubin 2.3. AST 53. ALT 30. Alkaline phosphatase 62. Albumin 2.7. ASSESSMENT AND PLAN: 1. Clostridium difficile colitis. Continue on Flagyl and oral vancomycin. Continue on lactobacillus as well. 2. Chronic thrombocytopenia. The patient's platelet count is a little bit lower today. We will continue to monitor this closely. 3. Alcoholic liver cirrhosis. Aware. 4. Portal hypertension with splenomegaly. Aware. 5. Alcohol dependence. The patient has been counseled about alcohol cessation. Continue on Librium and p.r.n. Ativan. 6. Gastrointestinal prophylaxis. Continue on IV Protonix. 7. Hypokalemia. Will replace the patient's potassium. cc: Argentina Bello MD [facility] NETWORKKelechi
[2017-01-18] MEDS: SODIUM CHLORIDE 0.9% INJ SCH ×2 (03:15→12:34)
[2017-01-18] MEDS: FLAGYL 250 MG/NS 250 MG/50 ML IVPB IV SCH ×4 (03:15→21:12)
[2017-01-18] MEDS: PROTONIX IV SCH ×2 (03:15→12:34)
[2017-01-18] MEDS: VANCOCIN PO SCH ×4 (03:16→21:14)
[2017-01-18] MEDS: MORPHINE IV PRN ×4 (03:55→21:12)
[2017-01-18] MEDS: LIBRIUM PO SCH ×4 (05:19→22:32)
[2017-01-18 05:59] LABS: HEMATOCRIT 33.3 % (42.0-52.0); HEMOGLOBIN 11.4 g/dL (14.0-18.0); MCH 36.1 PG (27-31); MCHC 34.2 g/dL (33-37); MCV 105.4 FL (81-99); MPV 9.8 FL (7.4-10.4); RBC 3.16 XMIL (4.7-6.1)
[2017-01-18 06:21] LABS: AGAP 9; ALBUMIN 2.4 g/dL (3.5-5.0); ALKALINE PHOSPHATASE 59 U/L (32-122); BUN 15 mg/dL (8-22); CALCIUM 7.4 mg/dL (8.8-10.2); CHLORIDE 105 mmol/L (98-107); COSMO 274; GOT 66 U/L (10-34); GPT 32 U/L (10-44); POTASSIUM 3.7 mmol/L (3.5-5.1); SODIUM 137 mmol/L (136-145); TCO2 23 mmol/L (25-35); TOTAL BILIRUBIN 1.87 mg/dL (0.20-1.00); TOTAL PROTEIN 5.9 g/dL (6.3-8.3)
[2017-01-18] MEDS: LEVSIN-SL SL SCH ×3 (08:55→16:53)
[2017-01-18] MEDS: CULTURELLE PO SCH ×2 (08:55→21:14)
[2017-01-18] MEDS: LOPRESSOR PO SCH (08:55)
[2017-01-18] MEDS: ATIVAN IV PRN ×2 (12:35→18:10)
[2017-01-18] MEDS: NS 1,000 ML IV SCH ×2 (12:35→12:36)
[2017-01-18] MEDS: M.V.I.-12 10 ML, FOLIC ACID 1 MG, MAGNESIUM SULFATE 1 GM, THIAMINE 100 MG in NS 1,000 ML IV SCH (15:50)
--- NOTE | 2017-01-18 17:33 | PROGRESS NOTE ---
DATE: 01/18/2017 SUBJECTIVE: The patient states that his diarrhea has improved. He states that it is no longer liquid and has more consistency to it. OBJECTIVE: Vital Signs: Temperature is 98 degrees, blood pressure 105/65, heart rate 63, respirations 22, O2 saturations 98% on room air. General: This is an elderly male sitting up in bed in no acute distress. Head: Normocephalic, atraumatic. Heart: S1, S2. Normal. Regular rate and rhythm. Lungs: Clear to auscultation bilaterally. No wheezes, no rales. No rhonchi. Abdomen: Positive bowel sounds. Soft, nontender, nondistended. Extremities: No edema. No cyanosis. No calf tenderness. Neurologic: The patient is alert and oriented x3. LABS: White blood cell count 5.2, hemoglobin 11, hematocrit 33, platelets 63,000. Sodium 137, potassium 3.7, chloride 105, CO2 23, BUN 15, creatinine 0.6, glucose 80, bilirubin 1.8. ASSESSMENT AND PLAN: 1. Clostridium difficile colitis. Improved. Continue on vancomycin, Flagyl and lactobacillus. The patient's diarrhea has improved and his stool has more consistency now. 2. Chronic thrombocytopenia. Stable. 3. Alcoholic liver cirrhosis. Aware. 4. Portal hypertension with splenomegaly. Aware. 5. Alcohol dependence. Continue with p.r.nNuha Ativan. The patient has again been counseled about alcohol cessation. 6. Gastrointestinal prophylaxis. Continue on IV Protonix. cc: Argentina Bello MD
--- NOTE | 2017-01-18 18:20 | PROGRESS NOTE ---
DATE: 01/18/2017 SUBJECTIVE: The patient states that he is feeling somewhat better. He is eating small bites of a regular diet. His stool frequency has decreased considerably on oral vancomycin and Flagyl. His liver function tests have continued to improve on a near daily basis. Overall, he denies complaints. PHYSICAL EXAMINATION: On exam, his blood pressure is 105/65, pulse 63, respiration 22, temperature of 98.9 degrees. The remainder of his exam was deferred. OBJECTIVE DATA: Revealed a hemoglobin of 11.4, with hematocrit of 33.3, and a white count of 5.29. He has 63,000 platelets. Sodium is 137, potassium 3.7, chloride 105, CO2 of 23, BUN 15, creatinine 0.6 with a glucose of 80. His calcium is 7.4, magnesium 2.1, total bilirubin 1.87, AST 66, ALT 32, alkaline phosphatase 59, total protein 5.9, and albumin 2.4. IMPRESSION: 1. Clostridium difficile colitis. 2. Nausea with vomiting, improved. 3. ETOH abuse. 4. Elevated liver function tests. 5. Gallbladder thickening on ultrasound. 6. New retroperitoneal fibrosis. 7. Hepatosplenomegaly. 8. Cirrhosis. 9. Portal hypertension. 10. Iron-deficiency anemia. 11. Diverticulosis. RECOMMENDATION: 1. Please continue the Flagyl and vancomycin for treatment of Clostridium difficile colitis. 2. In the future, the patient will need an outpatient EGD and colonoscopy for further evaluation of the above symptoms. 3. With regard to his liver function tests, they are improving. He will need the EGD for further evaluation of his distal esophagus to assess for varices. 4. He had a mildly distended and thickened gallbladder on ultrasound. Once he improves, I would check a HIDA scan. If there is biliary hypokinesis, I would schedule him for a cholecystectomy. If he has surgical intervention, I would ask that the surgeon would obtain a liver biopsy at the time. 5. He also has unexplained retroperitoneal fibrosis. I will recheck this on a subsequent CT scan. If it persists, we will have to perform full evaluation. 6. Regarding his iron deficiency anemia, his hemoglobin remains stable. If it drops, we will transfuse as needed. 7. He has hepatic splenomegaly of unknown significance. His evaluation will be deferred pending his improvement from the Clostridium difficile colitis. 8. Additional recommendations to follow based on his clinical course. cc: MD Miguel Che MD Katherine Takundwa, MD David Francis, MD MTDD
[2017-01-19] MEDS: VANCOCIN PO SCH ×4 (01:24→20:43)
[2017-01-19] MEDS: ATIVAN IV PRN ×4 (01:24→12:08)
[2017-01-19] MEDS: SODIUM CHLORIDE 0.9% INJ SCH ×2 (01:30→13:12)
[2017-01-19] MEDS: PROTONIX IV SCH ×2 (01:30→13:12)
[2017-01-19] MEDS: FLAGYL 250 MG/NS 250 MG/50 ML IVPB IV SCH ×4 (01:30→23:12)
[2017-01-19] MEDS: MORPHINE IV PRN ×3 (03:41→15:03)
[2017-01-19] MEDS: LIBRIUM PO SCH ×4 (04:57→23:17)
[2017-01-19] MEDS: NS 1,000 ML IV SCH (05:47)
[2017-01-19 07:07] LABS: AGAP 10; BUN 10 mg/dL (8-22); CHLORIDE 105 mmol/L (98-107); COSMO 276; POTASSIUM 3.5 mmol/L (3.5-5.1); SODIUM 139 mmol/L (136-145); TCO2 24 mmol/L (25-35)
[2017-01-19] MEDS: LEVSIN-SL SL SCH ×3 (08:12→16:47)
[2017-01-19] MEDS: CULTURELLE PO SCH ×2 (08:12→20:43)
[2017-01-19] MEDS: LOPRESSOR PO SCH (08:12)
--- NOTE | 2017-01-19 12:26 | PROGRESS NOTE ---
DATE: 01/19/2017 SUBJECTIVE: The patient is resting comfortably in bed. His diarrhea has resolved. His stool is now soft. OBJECTIVE: Vital Signs: Temperature 98.2 degrees, blood pressure 102/62, heart rate 70, respirations 18, O2 saturations 96% on room air. General: This is an elderly male lying in bed in no acute distress. Head: Normocephalic, atraumatic. Heart: S1, S2. Normal. Regular rate and rhythm. Lungs: Clear to auscultation bilaterally. No wheezes, no rales. No rhonchi. Abdomen: Positive bowel sounds. Soft, nontender, nondistended. Extremities: No edema. No cyanosis. No calf tenderness. Neurologic: The patient is alert and oriented x3. LABORATORY: Sodium 139, potassium 3.5, chloride 105, CO2 24, BUN 10, creatinine 0.7, glucose 96, magnesium 1.9, calcium 8. ASSESSMENT AND PLAN: 1. Clostridium difficile colitis. Improving. Continue on vancomycin, Flagyl and lactobacillus. 2. Alcoholic liver cirrhosis. Aware. 3. Portal hypertension with splenomegaly. Aware. 4. Alcohol dependence. The patient has been counseled about alcohol cessation. Continue with p.r.n. Ativan. 5. Chronic thrombocytopenia. Stable. 6. Gastrointestinal prophylaxis. Continue on intravenous Protonix. 7. Continue with physical therapy. cc: Argentina Bello MD
[2017-01-19] MEDS: M.V.I.-12 10 ML, FOLIC ACID 1 MG, MAGNESIUM SULFATE 1 GM, THIAMINE 100 MG in NS 1,000 ML IV SCH (13:55)
[2017-01-19 20:03] LABS: INR 1.34; PROTIME 14.3 Seconds (9.2-11.7)
[2017-01-19 20:25] LABS: AGAP 10; ALBUMIN 2.4 g/dL (3.5-5.0); ALKALINE PHOSPHATASE 67 U/L (32-122); BUN 8 mg/dL (8-22); CHLORIDE 105 mmol/L (98-107); COSMO 273; GOT 84 U/L (10-34); GPT 41 U/L (10-44); POTASSIUM 3.7 mmol/L (3.5-5.1); SODIUM 138 mmol/L (136-145); TCO2 23 mmol/L (25-35); TOTAL BILIRUBIN 1.76 mg/dL (0.20-1.00); TOTAL PROTEIN 6.3 g/dL (6.3-8.3)
--- NOTE | 2017-01-19 21:41 | Diag Imaging Result Doc PS360 ---
EXAM: KUB ABDOMEN HISTORY: assess for toxic megacolon TECHNIQUE: Supine COMPARISON: 01/16/2017 FINDINGS: The bowel loops are not dilated. No organomegaly. No abnormal abdominal or pelvic calcifications. Mild scoliosis. IMPRESSION: The bowel loops are not dilated. Electronically signed by Azeem Tang 01/19/2017 9:38 PM
[2017-01-20] MEDS: NS 1,000 ML IV SCH ×2 (00:49→05:37)
[2017-01-20] MEDS: SODIUM CHLORIDE 0.9% INJ SCH ×2 (03:11→14:39)
[2017-01-20] MEDS: FLAGYL 250 MG/NS 250 MG/50 ML IVPB IV SCH ×3 (03:11→16:28)
[2017-01-20] MEDS: VANCOCIN PO SCH ×4 (03:12→21:48)
[2017-01-20] MEDS: PROTONIX IV SCH ×2 (03:12→14:39)
--- NOTE | 2017-01-20 04:11 | PROGRESS NOTE ---
DATE: 01/19/2017 ACTIVE PROBLEM LIST: 1. C. difficile colitis. 2. Alcohol liver disease. 3. Elevated liver function tests. 4. Gallbladder thickening on ultrasound. 5. Retroperitoneal fibrosis. 6. Hepatosplenomegaly. 7. Portal hypertension. 8. Iron deficiency anemia. 9. Diverticulosis. 10. Nausea with vomiting, improved. 11. Diarrhea, resolved. SUBJECTIVE: The patient's states that he has become weaker over the weekend and struggles to stand alone. When they attempted to assist the patient to the bathroom today, he became dizzy and nearly passed out. She is concerned about the amount of pain medications, combined with Ativan, that he is currently taking. The patient is slightly confused, stating that he is not sure of where he is. However, he was able to self-orient within a few moments of continuing our conversation without insurance sales assistant. The family is raising concern because the patient has been sleeping all day. He was diagnosed with C. difficile colitis, but the diarrhea has subsequently resolved. PHYSICAL EXAMINATION: General: He is in no acute distress. Vital Signs: His blood pressure is 116/70, pulse 72, respiration 20, temperature of 98.5 degrees. HEENT: Negative. His oropharyngeal mucosal membranes are moist. Pulmonary: Lungs are clear to auscultation, with normal expiratory effort. Cardiovascular: Reveals regular rate and rhythm. No gallops, murmurs, or rubs. Abdominal: Reveals normoactive bowel sounds. The abdomen is soft, with mild left lower quadrant tenderness, but no rebound or guarding. Neurologic: There is no asterixis. OBJECTIVE DATA: Remarkable for hemoglobin of 11.4, with hematocrit of 33.3, and a white count of 5.29. He has 63,000 platelets. The PT is from 01/15/2017, and reveals a PT of 14.2, with an INR of 1.33. On serum chemistries, sodium is 139, potassium 3.5, chloride 105, CO2 24, BUN 10, creatinine 0.7, with a glucose of 96, and a calcium of 8.0. It should be noted his hepatitis profile from 01/15/2017 reveals no evidence of hepatitis A, B, or C. RECOMMENDATION: 1. Continue the vancomycin and Flagyl for C. difficile. 2. Continue Culturelle. 3. The patient is receiving Librium, morphine, and Ativan. This may be oversedation, as he does not appear to have evidence of delirium tremens. I recommend decreasing his pain medications and minimizing his sedative medications. 4. Continue Levsin for the abdominal spasms. 5. Continue vitamin supplements, including thiamine and folate. 6. Continue Protonix 40 mg IV q.12 hours while he is an inpatient. I would transition this to omeprazole 40 mg daily when he is tolerating a p.o. diet. 7. Because of his altered mental state and somnolence, I recommend that we check a CBC, CMP, ammonia, PT/INR, and a CRP. I would also check a KUB, as he has C. difficile, to ensure that he does not have evidence of toxic megacolon. In the absence of an infectious causes or metabolic change, I would strongly consider reducing his Ativan dose, as well as his Librium. cc: MD Argentina Che MD David Francis, MD Jason R. Seale, MD
[2017-01-20] MEDS: LIBRIUM PO SCH ×3 (05:27→21:48)
[2017-01-20 07:06] LABS: HEMATOCRIT 36.2 % (42.0-52.0); HEMOGLOBIN 12.8 g/dL (14.0-18.0); MCH 37.2 PG (27-31); MCHC 35.4 g/dL (33-37); MCV 105.2 FL (81-99); MPV 9.5 FL (7.4-10.4); RBC 3.44 XMIL (4.7-6.1)
[2017-01-20 07:23] LABS: AGAP 10; BUN 6 mg/dL (8-22); CALCIUM 8.4 mg/dL (8.8-10.2); CHLORIDE 105 mmol/L (98-107); COSMO 276; POTASSIUM 3.8 mmol/L (3.5-5.1); SODIUM 140 mmol/L (136-145); TCO2 25 mmol/L (25-35)
[2017-01-20] MEDS: LOPRESSOR PO SCH (09:32)
[2017-01-20] MEDS: CULTURELLE PO SCH ×2 (09:32→21:48)
[2017-01-20] MEDS: LEVSIN-SL SL SCH ×3 (09:32→21:48)
[2017-01-20] MEDS: M.V.I.-12 10 ML, FOLIC ACID 1 MG, MAGNESIUM SULFATE 1 GM, THIAMINE 100 MG in NS 1,000 ML IV SCH (14:39)
[2017-01-20] MEDS ORDERED: MORPHINE IV PRN (15:35)
--- NOTE | 2017-01-20 16:51 | PROGRESS NOTE ---
DATE: 01/20/2017 SUBJECTIVE: Patient reports feeling fine until he reports that he started having diarrhea again like 4 or 5 times per day. No fever or chills. OBJECTIVE: Vital Signs: Temperature 98.9 degrees, heart rate 79, respiratory rate 12, blood pressure 119/56, O2 saturation 96% on room air. General examination: This is an elderly male, lying in bed, in no acute distress. HEENT: Head is normocephalic, atraumatic. Anicteric sclerae and pale conjunctivae. Mucous membranes moist. Neck: Supple. No JVD noted. No carotid bruits. No lymphadenopathy. No thyromegaly. Cardiovascular: S1, S2 heard. No murmurs, gallops, or rubs. Regular rate and rhythm. Respiratory: Clear bilaterally to auscultation. No work of breathing or using accessory muscles. Abdomen: Soft, nontender to palpation. Bowel sounds hyperactive. No signs of peritoneal irritation. Extremities: There is no clubbing, cyanosis, or edema. Peripheral pulses present in both legs. Neurological: Patient alert and oriented x3. Moves 4 extremities. LABORATORY DATA: White cell count 4.7, hemoglobin is 12.8, hematocrit 36.2, platelets 84,000 and BMP unremarkable. ASSESSMENT AND PLAN: 1. C. difficile colitis. Patient is on vancomycin and Flagyl and lactobacillus and although the diarrhea resolved yesterday it restarted today. 4-6 bowel movements per day reported. We will continue with the same management in this case, Flagyl and vancomycin oral. We will go from there. 2. Alcohol liver cirrhosis. Aware. 3. Portal hypertension with splenomegaly. Aware. 4. Alcohol dependence. Patient has been counseled about stop drinking alcohol. 5. Chronic thrombocytopenia stable. Definitely more likely related to alcohol. 6. GI prophylaxis with Protonix. cc: Gaurav Sierra MD
[2017-01-20] MEDS ORDERED: LIBRIUM PO SCH (17:00)
[2017-01-20] MEDS: ATIVAN IV PRN (19:05)
--- NOTE | 2017-01-20 20:44 | Diag Imaging Result Doc PS360 ---
EXAM: HEAD W/WO CONTRAST - 01/20/2017 HISTORY: fall, increasing weakness TECHNIQUE: Without and with intravenous contrast. Dose reduction protocol. COMPARISON: None. FINDINGS: There is no evidence of intracranial hemorrhage, mass effect, midline shift, or hydrocephalus. There is no evidence of infarct, although acute infarcts may not be immediately visible. There are bilateral basal ganglia calcifications compatible with chronic process. There is no abnormal enhancement identified. There is no skull fracture. IMPRESSION: No visible acute intracranial abnormality Electronically signed by Forrest Duffy 01/20/2017 8:41 PM
--- NOTE | 2017-01-20 20:54 | PROGRESS NOTE ---
DATE: 01/30/2017 SUBJECTIVE: Overnight the patient has had a marked increase in weakness with progressive depression and an increase in his anxiety. He notes weakness and fatigue. He is unstable in his feet and actually fell in the bathroom. He was caught as he was falling by his daughter who was assisting him. His notes multiple bowel movements and states that the patient is sleeping all day. OBJECTIVE: General: He is ill-appearing, appears weaker than previous exam. Vital signs: His blood pressure is 143/72, pulse of 76, respirations of 20, temperature of 98.7 degrees. His blood pressure supine was 112/45 with a pulse of 82. Sitting his blood pressure is 126/67 with a pulse of 81. Standing his blood pressure is 116/63 with a pulse of 84. HEENT: Negative for jaundice. There is no evidence of nystagmus on neurologic exam. His oropharyngeal mucosal membranes are dry. Pulmonary: Lungs are clear to auscultation with normal expiratory effort. Cardiovascular: Reveals regular rate and rhythm with no murmurs, gallops, or rubs. Abdomen: Reveals normoactive bowel sounds. The abdomen is soft, nontender with no rebound or guarding. Extremities: Remarkable for 1+ edema. Skin: Inspection of the skin is remarkable for spider angiomas on his upper back, upper chest and left naris. Neurologic: He is unable to do the finger touched or the [id number] test. He is able to coordinate his hands without difficulty. His cleaner and presser strength is equally strong bilaterally. He is unsteady on his gait and unable to ambulate without assist. OBJECTIVE DATA: Remarkable for hemoglobin of 12.8 with hematocrit of 28.2 and a white count of 4.73. He has 84,000 platelets. Sodium is 140, potassium 3.8, chloride 105, CO2 of 25, BUN 6, creatinine 0.7 with a glucose of 89 and a calcium of 8.4. IMPRESSION: 1. Falls. 2. Weakness, likely metabolic encephalopathy versus alcoholic encephalopathy. 3. Clostridium difficile colitis. 4. Alcohol liver disease. RECOMMENDATION: 1. Because of his acute change in mental status, I recommend CT scan of his brain. 2. Please recheck his liver function tests, ammonia level, CBC and coagulation studies to assess for acute hepatic encephalopathy and screen for liver failure. 3. Because he reports increased diarrhea, I recommend rechecking a stool for C. difficile toxin given his change in symptoms. 4. Because of his neurologic symptoms which appeared to be more global than isolated, I recommend discontinuing the Flagyl. In the morning will discuss with Dr. Wesley other treatment options for C. difficile colitis based on stool studies. Consider a neurology consult if no improvement tonight. 5. I agree with physical therapy. Order was placed today. It will be important for them to assist the patient with range of motion, physical activity. 6. It is unclear how much of this is depression and alcohol related. I will therefore ask neurology to see the patient in the morning to help us to discern between depression, alcoholic encephalopathy and metabolic encephalopathy. 7. Additional recommendations to follow based on the results of his evaluation and his clinical course. cc: Denis Barrera III, MD MTDD
[2017-01-20 21:45] LABS: AGAP 10; ALBUMIN 2.5 g/dL (3.5-5.0); ALKALINE PHOSPHATASE 80 U/L (32-122); BUN 5 mg/dL (8-22); CALCIUM 8.3 mg/dL (8.8-10.2); CHLORIDE 107 mmol/L (98-107); COSMO 282; GOT 80 U/L (10-34); GPT 43 U/L (10-44); POTASSIUM 3.6 mmol/L (3.5-5.1); SODIUM 142 mmol/L (136-145); TCO2 25 mmol/L (25-35); TOTAL BILIRUBIN 1.43 mg/dL (0.20-1.00); TOTAL PROTEIN 6.5 g/dL (6.3-8.3)
[2017-01-21] MEDS: ATIVAN IV PRN (01:15)
[2017-01-21] MEDS: NS 1,000 ML IV SCH ×2 (04:28→18:34)
[2017-01-21] MEDS: VANCOCIN PO SCH ×4 (04:28→21:57)
[2017-01-21] MEDS: PROTONIX IV SCH ×2 (04:29→15:26)
[2017-01-21] MEDS: SODIUM CHLORIDE 0.9% INJ SCH ×2 (04:29→15:26)
[2017-01-21 07:08] LABS: AGAP 9; BUN 5 mg/dL (8-22); CALCIUM 8.3 mg/dL (8.8-10.2); CHLORIDE 108 mmol/L (98-107); COSMO 282; POTASSIUM 3.5 mmol/L (3.5-5.1); SODIUM 143 mmol/L (136-145); TCO2 26 mmol/L (25-35)
[2017-01-21] MEDS: LIBRIUM PO SCH ×3 (08:50→21:59)
[2017-01-21] MEDS: CULTURELLE PO SCH ×2 (08:50→21:57)
[2017-01-21] MEDS: LEVSIN-SL SL SCH ×3 (08:50→21:57)
[2017-01-21] MEDS: LOPRESSOR PO SCH (08:50)
[2017-01-21] MEDS: M.V.I.-12 10 ML, FOLIC ACID 1 MG, MAGNESIUM SULFATE 1 GM, THIAMINE 100 MG in NS 1,000 ML IV SCH (15:26)
--- NOTE | 2017-01-21 16:51 | PROGRESS NOTE ---
DATE: 01/21/2017 SUBJECTIVE: The patient reports having had just 1 episode of diarrhea today. No fever to report. OBJECTIVE: Vital Signs: Temperature 97.8 degrees, heart rate 70, respiratory rate 20, blood pressure 119/70. O2 saturation 100% on room air. General Examination: This is a 61-year-old male lying in bed, in no acute distress. HEENT: Head is normocephalic, atraumatic. Anicteric sclerae and pale conjunctivae. Mucous membranes moist. Neck: Supple. No JVD noted. No carotid bruits. No lymphadenopathy. No thyromegaly. Cardiovascular: S1, S2 heard. No murmurs, gallops, or rubs. Regular rate and rhythm. Respiratory: Clear bilaterally to auscultation. No work of breathing or using accessory muscles. Abdomen: Soft, nontender to palpation. Bowel sounds present. No organomegaly. Extremities: No clubbing, cyanosis, or edema. Peripheral pulses present in both legs. Neurological: Patient alert and oriented x3. LABORATORY DATA: Reviewed. ASSESSMENT/PLAN: 1. Clostridium difficile colitis. Patient is on vancomycin, Flagyl and altos. Yesterday diarrhea started again like 6 times per day. Today just one daily and the patient clinically is doing fine. So we will continue with the same management. 2. Alcoholic liver cirrhosis. Aware. 3. Portal hypertension with splenomegaly. Aware. 4. Alcohol dependence. actually asked about what options we have to consult while this patient is in hospital. We will try to refer him to an inpatient alcohol rehabilitation. We will see what we can do for this patient. 5. Chronic thrombocytopenia. Stable. That condition is definitely related to chronic alcohol consumption. 6. Gastrointestinal prophylaxis with Protonix. cc: Gaurav Sierra MD
[2017-01-21] MEDS ORDERED: ATIVAN IV PRN (18:35)
--- NOTE | 2017-01-21 19:42 | CONSULTATION ---
DATE OF CONSULTATION: 01/21/2017 REASON FOR CONSULTATION: The patient is seen in consultation at the request of Dr. Colbert for evaluation of weakness. HISTORY OF PRESENT ILLNESS: The patient is a 61-year-old, right-handed male with history of alcohol dependence, coronary artery disease, hypertension, hyperlipidemia who was admitted with abdominal pain and found to have Clostridium difficile colitis recently. He was initially highly medicated with opiate medications as well as benzodiazepines. He reports that he requested these to be discontinued yesterday. Dr. Colbert noted that he was unsteady on his feet and was concerned that he may be weak in his feet. He did have an event where he stumbled forward in the bathroom while he was sitting and went into the towel rack. He and his nurse report that his symptoms are actually better. He denies having any weakness at all actually and says that he never did. He is frustrated that he cannot do more physical therapy. He denies any back pain, any onset of numbness or paresthesias. No headache. No bladder issues and no incontinence. Of course, he is here for Clostridium difficile colitis and is having multiple bowel movements. He says that he feels like his thinking is clearing up today compared to previous and he feels overall better. The nurse relates also that he is better today than he had been and that she has not been giving him as much of the medications as previously given to him by others. I believe these are as needed. No chest pain or shortness of breath. PAST MEDICAL HISTORY: Alcohol dependence, coronary artery disease, hypertension , hyperlipidemia, history of atrial fibrillation, CABG, hernia repair. SOCIAL HISTORY: He drinks daily. Denies illicit drug use. Prior smoker. He is . FAMILY HISTORY: Positive for coronary artery disease and heart failure. ALLERGIES: To penicillin. HOME MEDICATIONS: Aspirin 325 mg daily. Lipitor 40 mg daily. Lopressor 25 mg daily. Prilosec 40 mg daily. REVIEW OF SYSTEMS: A balance of 12 was conducted and is otherwise negative except as noted in the HPI. He has been having abdominal pain which is improved. PHYSICAL EXAMINATION: Vital Signs: Afebrile, blood pressure 119/64, pulse 66, respirations 20, 99% on room air. General: He is sitting up in bed, in no acute distress. He is mostly appropriate and interactive. He is a little bit confused though and is trying to dial out on the telephone, however, he is trying to do this using the remote control to the TV. Neck: Supple. Cardiovascular: Intact pulses. He has some edema around the feet. Abdomen: Soft, nontender, nondistended. Extremities: Warm and well-perfused. There is some edema of the distal lower extremities. Neurologic Examination: Mental Status: He is awake and alert. He regards as I enter the room. He is able to carry on a conversation and answer questions, and would seem that his MS is intact if formal testing was not performed. He is actually a little bit confused as mentioned above. In addition to this, he thinks the president is Mark Figueredo. He cannot tell me the year. He tells me something in the . Though he does know the month, he does not know the date but he is only 2 days off. He is able to name my glasses but cannot name the lens. Cranial nerves, PERRL, conjugate gaze, blinks to threat. Ocular movements are full. Face is symmetric with equal activation. Tongue is midline. Palate elevates symmetrically. Shoulder shrug is full. Motor examination: No drift. Strength is intact 5/5 throughout and in particular in his lower extremities as well. Reflexes are intact 1 to 2+ throughout. He requires distraction to obtain the 1+ ankle jerks. No clonus. Toes are mute. Sensory examination: He has mild length dependent loss to temperature distally in the lower extremities to about the lower calf level. This is symmetric. He has intact vibration which is actually very good and accurate. His joint position sense is intact. Coordination: Intact heel to jaeger, finger to nose and finger taps. He has some slight difficulty understanding the rapid alternating movements commanded on asking him to do and showing him. Gait: He is a little bit unsteady on his feet but I do not have to hold him up. He casually walks without assistance but is slow. He is not able to tandem at this time. He has an absent Romberg sign. DIAGNOSTICS: Head CT was obtained yesterday, noncontrast and was personally reviewed. There is no acute abnormality. White count 4.73, hemoglobin 12.8, hematocrit 36, platelets 84, PT 14, INR 1.34. Sodium 143, potassium 3.5, BUN 5, creatinine 0.6, calcium 8.3, magnesium 1.9. Bilirubin 1.43, AST 80, ALT 43, alkaline phosphatase 80, ammonia 22, CK 45, albumin is low at 2.5. ASSESSMENT AND PLAN: This is a 61-year-old, right-handed male with alcohol dependence and currently being treated for Clostridium difficile colitis who I am consulted on for evaluation of weakness with one reported fall recently, this is detailed above. 1. Generalized unsteadiness. His examination is nonfocal. He actually has full muscle strength throughout including in his lower extremities which has been tested in detail. The patient has no muscle weakness, though he has generalized unsteadiness most likely from the medications that have recently been given to him and possibly also from the Clostridium difficile colitis active illness and fluid loss. He probably has a mild small fiber peripheral neuropathy though this is not causing him any physical problems and is not the cause of his current unsteadiness. He has no back pain or bladder issues. He has intact reflexes and no sensory disturbance that he has reported subjectively feeling, so something such as acute inflammatory demyelinating polyneuropathy is not in the differential at this time and again he does not have true muscle weakness. I recommend reducing and discontinuing the pain medications and benzodiazepines, as able. I suspect his cognitive status along with his unsteadiness will improve as the C diff is treated and the medications are reduced and ultimately discontinued. 2. C diff collitis with fluid loss. Again, likely a contributing factor to his unsteadiness. Defer treatment to primary team. 3. Alcohol use. Discussed importance of cessation. May also be contributing to what I suspect is a mild, small fiber neuropathy. No further recommendations from a neurologic standpoint at this time. cc: Elzbieta Morataya MD MTDD
[2017-01-22] MEDS: NS 1,000 ML IV SCH ×2 (00:42→06:12)
[2017-01-22] MEDS: VANCOCIN PO SCH ×4 (03:11→21:32)
--- NOTE | 2017-01-22 04:55 | PROGRESS NOTE ---
DATE: 01/21/2017 SUBJECTIVE: Last night, the patient had severe depression, anxiety, agitation, and multiple crying spells. Today, he states that he feels better emotionally. He was able to ambulate with assistance around the hallway. He tolerated some of his diet today and feels like his strength is improving. His stool frequency continues to be elevated but is significantly better. Overnight, he has had 3 bowel movements. They remain liquid but are thicker than they have been. His analysis overnight was unremarkable. I appreciate the input from Dr. Morataya with regard to his neurologic evaluation. From a GI perspective, I would continue the current course. We will plan an outpatient evaluation of his liver disease secondary to alcohol once he improves. It is reasonable to consider an inpatient alcohol treatment center. Please note that the patient states that he is better but continues to grieve the loss of his son who committed suicide 4 months ago. At this time, I have no new recommendations. cc: MD Omar Che MD Cesar Garcia-Rodriguez, MD Jason R. Seale, MD
[2017-01-22] MEDS: PROTONIX IV SCH ×2 (06:11→13:11)
[2017-01-22 06:36] LABS: MANUAL DIFF NEEDED? NO
[2017-01-22 06:47] LABS: BASO% 0.7 % (0.0-0.8); EOS# 0.16 X1000 (0.0-0.7); EOS% 3.5 % (0.0-10.0); HEMATOCRIT 35.2 % (42.0-52.0); HEMOGLOBIN 12.2 g/dL (14.0-18.0); LYMPH# 1.69 X1000 (1.2-3.4); LYMPH% 36.8 % (20.5-51.1); MCH 36.3 PG (27-31); MCHC 34.7 g/dL (33-37); MCV 104.8 FL (81-99); MONO# 0.59 X1000 (0.11-0.59); MONO% 12.9 % (1.7-9.3); MPV 9.8 FL (7.4-10.4); NEUT% 46.1 % (42.2-75.2); PLT 100 X1000 (130-400); RBC 3.36 XMIL (4.7-6.1)
[2017-01-22 07:06] LABS: AGAP 5; BUN 5 mg/dL (8-22); CALCIUM 8.3 mg/dL (8.8-10.2); CHLORIDE 107 mmol/L (98-107); COSMO 281; POTASSIUM 3.7 mmol/L (3.5-5.1); SODIUM 142 mmol/L (136-145); TCO2 30 mmol/L (25-35)
[2017-01-22] MEDS: LEVSIN-SL SL SCH ×3 (08:46→16:36)
[2017-01-22] MEDS: LOPRESSOR PO SCH (08:46)
[2017-01-22] MEDS: CULTURELLE PO SCH ×2 (08:46→21:32)
[2017-01-22] MEDS: LIBRIUM PO SCH ×3 (08:47→21:32)
[2017-01-22] MEDS: M.V.I.-12 10 ML, FOLIC ACID 1 MG, MAGNESIUM SULFATE 1 GM, THIAMINE 100 MG in NS 1,000 ML IV SCH (13:08)
--- NOTE | 2017-01-22 18:15 | PROGRESS NOTE ---
DATE: 01/22/2017 SUBJECTIVE: The patient has no complaints. OBJECTIVE: Vital signs: Blood pressure 113/62, heart rate 70, respiratory rate 20, temperature 97.7 degrees. Cardiovascular: Regular rate and rhythm. Pulmonary: Bilateral breath sounds. Clear to auscultation. GI: Soft, nontender, nondistended. Bowel sounds are positive. LABORATORY: White count 4.5, hemoglobin and hematocrit 12 and 35, platelets 100,000. Basic was normal. PROBLEM LIST: 1. Clostridium difficile colitis. He seems to be doing okay and clinically improving. 2. Alcohol abuse. He seems to be stabilizing. I am going to wean his Librium further, start some Celexa and we will follow. 3. Depression. I think he has got fairly significant depression. We will initiate Celexa and monitor. He is not suicidal or homicidal. He is interested in at least outpatient psychiatric evaluation, but he does not seem like he wants to pursue inpatient alcohol rehabilitation and he has completed it already. DISPOSITION: Pending his multiple issues, but I anticipate discharge tomorrow. cc: Ward Álvarez MD
--- NOTE | 2017-01-22 20:44 | PROGRESS NOTE ---
DATE: 01/22/2017 SUBJECTIVE: The patient states that he is feeling physically stronger and better emotionally. He was able to ambulate in the hallway today, but remains weaker than usual. However, he denies abdominal pain. He reports his diarrhea has improved considerably and he is having one soft bowel movement per day. He was able to tolerate 100% of his diet without issue. OBJECTIVE: Vital signs: On exam, his blood pressure is 113/62, pulse 70, respiration 20, temperature of 97.7 degrees. Abdomen: Soft and nondistended. OBJECTIVE DATA: Remarkable for hemoglobin of 12.2 with hematocrit of 35.2, and a white count of 4.59. He has 100,000 platelets. Sodium is 142, potassium 3.7, chloride 107, CO2 of 30, BUN 5, creatinine 0.7 with a glucose of 101, and a calcium of 8.3. IMPRESSION: 1. Clostridium difficile colitis. 2. Depression. 3. Pancytopenia. 4. Macrocytic anemia. 5. Alcohol liver disease. RECOMMENDATION: 1. Continue current antibiotics for the treatment of Clostridium difficile colitis. 2. Metabolic encephalopathy appears to be improving. 3. The patient has longstanding alcohol liver disease combined with depression. From a Gastroenterology perspective, we will plan to manage his liver disease as an outpatient once he is discharged. He definitely has portal hypertension with changes consistent with cirrhosis on CT scan. He will need an outpatient EGD to screen for varices. 4. The patient is due for a screening colonoscopy. We would like to schedule that once she has recovered from the Clostridium difficile colitis. 5. It may be reasonable to consider a liver biopsy at some point in the future to assess his degree of cirrhosis. Once he has been alcohol and drug free for 6 months, he would be a reasonable candidate for possible liver transplant evaluation depending on the severity of his liver disease at that time. His MELD score has improved significantly during this admission. 6. I anticipate the patient's discharge in the next 1-2 days. Please have him contact our office for follow up within the next 2-3 weeks. cc: MD Omar Che MD Alexis R. Penot, MD
[2017-01-22] MEDS ORDERED: CELEXA PO SCH (21:00)
[2017-01-23] MEDS: LIBRIUM PO SCH ×2 (00:01→09:26)
[2017-01-23] MEDS: VANCOCIN PO SCH ×3 (01:55→15:14)
[2017-01-23 06:38] LABS: MANUAL DIFF NEEDED? NO
[2017-01-23] MEDS ORDERED: PRILOSEC PO SCH (07:00)
[2017-01-23 07:03] LABS: BASO% 0.6 % (0.0-0.8); EOS# 0.14 X1000 (0.0-0.7); EOS% 2.8 % (0.0-10.0); HEMATOCRIT 33.7 % (42.0-52.0); HEMOGLOBIN 11.7 g/dL (14.0-18.0); LYMPH# 2.14 X1000 (1.2-3.4); LYMPH% 43.1 % (20.5-51.1); MCH 36.2 PG (27-31); MCHC 34.7 g/dL (33-37); MCV 104.3 FL (81-99); MONO# 0.51 X1000 (0.11-0.59); MONO% 10.3 % (1.7-9.3); MPV 9.9 FL (7.4-10.4); NEUT% 43.2 % (42.2-75.2); PLT 103 X1000 (130-400); RBC 3.23 XMIL (4.7-6.1)
[2017-01-23 07:29] LABS: AGAP 5; BUN 8 mg/dL (8-22); CHLORIDE 107 mmol/L (98-107); COSMO 281; POTASSIUM 3.5 mmol/L (3.5-5.1); SODIUM 142 mmol/L (136-145); TCO2 30 mmol/L (25-35)
[2017-01-23 08:03] VITALS: BP 127/63
[2017-01-23] MEDS: LOPRESSOR PO SCH (09:26)
[2017-01-23] MEDS: CULTURELLE PO SCH (09:26)
--- NOTE | 2017-01-23 17:06 | DISCHARGE SUMMARY ---
ADMISSION DATE: 01/15/2017 DISCHARGE DATE: 01/23/2017 DISCHARGE DIAGNOSES: 1. Clostridium difficile colitis. 2. Alcohol abuse. 3. Depression. 4. Chronic liver disease. Possibly new early alcoholic liver cirrhosis with portal hypertension. 5. Chronic thrombocytopenia. CONSULTATIONS: 1. Dr. Colbert for cirrhosis. 2. Dr. Rivas. HISTORY OF PRESENT ILLNESS: Please refer to complete HPI. Briefly, this is a 61-year-old male presenting with abdominal pain. He had a fever, history of alcohol dependence, coronary artery disease, atrial fibrillation. He was placed on IV antibiotics. Surgery was consulted. He was placed on Librium taper. Clinically improved. Abdominal ultrasound showed thickened gallbladder wall and distended gallbladder but no stones and no pericholecystic fluid. Surgery did not feel that he needed surgical intervention. He was maintained on IV Flagyl and vancomycin. His CT did suggest early cirrhosis with portal hypertension, although the ultrasound was not consistent and keep with that. Clinically he improved very slowly. Able to wean him off his medications without difficulty. We had a long discussion about alcohol cessation and he did not want participate in inpatient rehab situation. He was given information for outpatient programs. His diarrhea essentially resolved. His mental status improved. He was tolerating p.o. without difficulty. Abdominal exam was benign. On the day of discharge white count normal. The rest of electrolytes were normal. He was felt stable for discharge. His selenium level was normal. Clinically again he was felt stable for discharge. Neurology was also consulted. I think that was for some encephalopathy but it was felt to be probably related to multiple issues versus a primary neurological issue. He was felt stab for discharge on the . DISCHARGE MEDICATIONS: Aspirin 325 daily, Lipitor 40 daily, Lopressor 25 daily, Prilosec 40 daily. He will need vancomycin 125 q.6h for another week and I also recommended probiotic and we will initiate Celexa 20 daily. DISCHARGE CONDITION: Stable. TIME SPENT AT DISCHARGE: Thirty-five minute discharge. cc: MD Omar Brody MD Jeanette Keith, MD
== END 2017-01-23 15:23 | disposition home or self-care (01) ==
LOC: ED 08:58 → 4N 08:59 → SUATTDRO 08:59 → 3S 20:14 → 3N 01-16 20:29
PROVIDERS: ATTEND Internal Medicine

== ENCOUNTER 2019-04-12 13:45 | Inpatient (IN) ==
[2019-04-12] MEDS ORDERED: NS 1,000 ML IV ONE (14:02)
[2019-04-12] MEDS ORDERED: PROTONIX IV ONE (14:53)
[2019-04-12] MEDS ORDERED: SODIUM CHLORIDE 0.9% INJ ONE (14:53)
--- NOTE | 2019-04-12 14:54 | PROVIDER DOCUMENTATION ---
HPI-Abdominal Pain/GI Problem - General Chief Complaint: N/V/D Stated Complaint: NOT EATING LIVER PATIENT CDIFF Time Seen by Provider: 04/12/19 13:58 Allergies/Adverse Reactions: Patient Allergies Allergy/AdvReac Type Severity Reaction Status Date / Time Penicillins AdvReac Severe RASH Verified 04/12/19 14:58 Home Medications: Home Medication List Medication Instructions Recorded Confirmed Last Taken Type Atorvastatin Calcium [Lipitor] 40 mg PO DAILY 09/04/13 04/12/19 04/11/19 History Metoprolol [Lopressor] 50 mg PO DAILY 09/04/13 04/12/19 04/11/19 History Pantoprazole Sodium 40 mg PO DAILY 10/26/18 04/12/19 04/11/19 History - History of Present Illness-ABD Nature of Presenting Problems: 64 year old caucasioan male with h/o CAD s/p CABG, Gerd, Liver Cirrhosis s/p banding of esophageal varices, presents to the ED with persistent non bloody diarrhea of 2 weeks duration without recent use of antibiotics. Also reports anorexia, mild nausea without vomiting. He presently feels tired and without energy and states that his reflux is acting up. He has not taken his antireflux medication today. He denies recent use of antibiotics. Has a past h/o of antibiotic related c-diff collitis in 2017 and 2018. Associated Symptoms: reports: fatigue, shortness of breath (mild) Last BM: other (today) Review of Systems - Adult - REVIEW OF SYSTEMS - ADULT Constitutional: reports: fatique Cardiovascular: reports: no symptoms reported Respiratory: reports: no symptoms reported (mild from ascitis), shortness of breath Gastrointestinal: reports: see HPI Musculoskeletal: reports: no symptoms reported Integumentary: reports: no symptoms reported Neurological: reports: no symptoms reported Psychiatric: reports: no symptoms reported Endocrine: reports: no symptoms reported Hematologic/Lymphatic: reports: other (low platelet) Allergic/Immunologic: reports: no symptoms reported All Other Systems: Reviewed and Negative Past History - Adult - PAST MEDICAL HISTORY-ADULT Review of Records: reports: Nursing Assessment Review, Medications Reviewed, Social history reviewed & non-contributory. Cardiovascular: reports: cardiac disease, hyperlipidemia Respiratory: reports: denies history Gastrointestinal: reports: GERD, liver disease (cirrhosis), ulcer (2x bleeding ulcers) Genitourinary: reports: denies history Musculoskeletal: reports: denies history Neurological: reports: denies history Endocrine/Immune: reports: denies history Other Conditions: reports: denies history - PRIOR SURGERIES/PROCEDURES Surgical/Procedure History: reports: recent surgery (esophageal banding), EGD, CABG, other (open heart surgery) - PRIOR HOSPITALIZATIONS Prior Hospitalizations: reports: for similar symptoms - IMMUNIZATION STATUS Childhood Immunizations: See Nurse Assessment Flu Vaccine: See Nurse Assessment - FAMILY HISTORY Family History: reviewed, not pertinent - SOCIAL HISTORY Smoking: quit greater than 1 year Substance Use: none/never, alcohol (drank heavilly for 3 years after he lost on of his sons and the other is in triouble with law enforcement but has recently stopped drinking) Alcohol Use Frequency: sober (former use) Living Situation: family Physical Exam-General - PHYSICAL EXAM-ADULT Initial Vital Signs Reviewed: Yes - CONSTITUTIONAL General Appearance: alert, slow to respond - HEAD, EARS, NOSE, MOUTH & THROAT HENMT: normocephalic/atraumatic, other (dry oral muucosa) - NECK Neck: non-tender, full range of motion, supple - RESPIRATORY Respiratory: lungs clear, normal breath sounds - CARDIOVASCULAR Cardiovascular: other (slightly week pulse) - GASTROINTESTINAL (ABDOMEN) Abdominal Exam: distended - MUSCULOSKELETAL Back Exam: no CVA tenderness Extremity: non-tender, pedal edema, other (radial pulse palpable but faint. Cold extremities) - SKIN Integumentary: normal color - NEUROLOGIC Neurologic: no motor/sensory deficits, other - PSYCHIATRIC Psych/Mental Status: normal thought content, normal thought process, disoriented x 3 Progress - PLAN OF CARE/RESULTS Progress/Plan/Lab Results: Vital Signs - 8 hr 04/12/19 13:59 Temperature 97.3 F L Pulse Rate 76 Respiratory Rate 22 Blood Pressure 76/56 O2 Sat by Pulse Oximetry 98 Orders Category Date Time Status Saline Loc NOW Care 04/12/19 13:58 Active AMMONIA [CHEM] Stat Lab 04/12/19 14:02 Uncollected CBC WITH ELECTRONIC DIFF [HEME] Stat Lab 04/12/19 13:58 Uncollected CK PROFILE [SP CHEM] Stat Lab 04/12/19 13:58 Uncollected COMPREHENSIVE METABOLIC PANEL [CHEM] Stat Lab 04/12/19 13:58 Uncollected PRO B-NATRIURETIC PEPTIDE Stat Lab 04/12/19 14:02 Ordered PROTIME WITH INR [COAG] Stat Lab 04/12/19 14:02 Uncollected PTT [COAG] Stat Lab 04/12/19 14:02 Uncollected URINALYSIS W/POSS RFLX CULT [URINALYSIS] Stat Lab 04/12/19 13:59 Uncollected 0.9% Sodium Chloride Inj [Ns] 1,000 ml Med 04/12/19 14:02 Active IV 999 mls/hr Result Diagrams: 04/12/19 14:50 04/12/19 14:50 - REASSESSMENT Reassessment #1 Status: unchanged (Patient was seen receiving IVF, sbp now 91. condion remained uncharged. Not getting worse. No distress. Discussed labs with patient and admission after consulting with DR Wolff. Patient and aggreeable plan) - CONSULTS/PCP/HOSPITALIST Notification Time Discussed: 16:15 Consult Disposition: other (discussed with GI Dr Loo prior to admission. he will see him after admission) Time Discussed: 16:40 Consult Disposition: Admit (Discussed with Merly. Patient will be admitted to service) Departure - Departure Date of Disposition Decision: 04/12/19 Time of Disposition Decision: 16:59 DIAGNOSIS: Dehydration, Volume depletion, Hyponatremia Diarrhea Qualifiers: Diarrhea type: unspecified type Qualified Code(s): R19.7 - Diarrhea, unspecified Renal failure Qualifiers: Renal failure chronicity: acute Acute renal failure type: unspecified Qualified Code(s): N17.9 - Acute kidney failure, unspecified Liver failure Qualifiers: Liver failure chronicity: acute Hepatic coma status: without hepatic coma Qualified Code(s): K72.00 - Acute and subacute hepatic failure without coma Disposition: ADMITTED INPATIENT 09 Certified Medical Emergency: Emergent Condition: Serious Referrals and Follow-Ups: Omar Mandujano MD [Primary Care Provider] - - Critical Care Note This patient required my direct & personal management of CC.: Yes Attestation - Physician/ SUN Attestation Patient care was provided by Advanced Practice Provider:: No The physician spent face to face time with patient:: Yes Advanced Practice Provider documentation review:: Supervising physician onsite and consulted in the evaluation and care of this patient. The physician did have a face to face encounter with the patient.
[2019-04-12 15:15] LABS: EOS# 0.01 X1000 (0.0-0.7); EOS% 0.1 % (0.0-10.0); HEMATOCRIT 36.7 % (42.0-52.0); HEMOGLOBIN 13.4 g/dL (14.0-18.0); LYMPH# 1.44 X1000 (1.2-3.4); LYMPH% 19.8 % (20.5-51.1); MCH 37.2 PG (27-31); MCHC 36.5 g/dL (33-37); MCV 101.9 FL (81-99); MONO# 0.63 X1000 (0.11-0.59); MONO% 8.7 % (1.7-9.3); MPV 10.8 FL (7.4-10.4); NEUT# 5.19 X1000 (1.4-6.5); NEUT% 71.4 % (42.2-75.2); PLT 63 X1000 (130-400); WBC 7.27 X1000 (4.8-10.8)
[2019-04-12 15:19] LABS: PTT 66.4 Seconds (22.3-41.8)
[2019-04-12 15:35] LABS: INR 4.28; PROTIME 42.6 Seconds (11.0-16.0)
[2019-04-12 15:53] LABS: ALB/GLOB RATIO 0.5; ALBUMIN 2.4 g/dL (3.5-5.0); CALCIUM 8.4 mg/dL (8.8-10.2); CREATININE 3.7 mg/dL (0.7-1.2); POTASSIUM 4.4 mmol/L (3.5-5.1); TOTAL BILIRUBIN 6.99 mg/dL (0.20-1.00); TOTAL PROTEIN 6.8 g/dL (6.3-8.3)
[2019-04-12 16:36] LABS: CK INDEX 0.6 (0.0-2.5); CK-MB 2.94 ng/mL (0.0-5.0)
[2019-04-12] MEDS ORDERED: ZOFRAN IV PRN (17:31)
--- NOTE | 2019-04-12 19:31 | HISTORY AND PHYSICAL ---
PRIMARY CARE PHYSICIAN: Dr. Omar Mandujano. PRIMARY GI DOCTOR: Dr. Crain. PRIMARY KNOCKOUT MAN: Dr. Sylvester. CHIEF COMPLAINT: Diarrhea for 2 weeks. HISTORY OF PRESENT ILLNESS: This is a 64-year-old male with past medical history alcohol dependence, coronary artery disease, hypertension, hyperlipidemia who presented to the emergency department complaining of diarrhea that has lasted approximately 2 weeks. He denies any recent antibiotic use. He reports also poor appetite mild nausea, but he was not vomiting. The diarrhea, he described like 5 to 10 times per day. Actually, yesterday he had 10 episodes of diarrhea. No blood on it. He was feeling more and more tired and also he noticed more abdominal distention as well as burning in the epigastric area. It is important to remark that he has history of antibiotic related C diff colitis in 2017 and 2018. Upon ER evaluation, he was found out to have a low sodium of 126 with creatinine 3.7. He is going to be admitted for further evaluation and treatment. PAST MEDICAL HISTORY: 1. Alcohol dependence. According to patient and who is at bedside, he quit drinking alcohol approximately 6 weeks ago. He used to drink vodka with orange juice. 2. Coronary artery disease status post CABG. The patient is being followed with Dr. Sylvester at [facility]. 3. Hypertension. 4. Hyperlipidemia. 5. Distant history of atrial fibrillation. PAST SURGICAL HISTORY: 1. CABG in January 2018. 2. Hernia repair. SOCIAL HISTORY: As we mentioned before, the patient quit drinking alcohol 6 weeks ago. He quit smoking 29 years ago. FAMILY HISTORY: Significant for coronary artery disease in father and mother and CHF as well. ALLERGIES: Patient is allergic to penicillin. REVIEW OF SYSTEMS: Eleven systems were reviewed and all symptoms are related to H P. PHYSICAL EXAMINATION: VITAL SIGNS: Temperature 97.3 degrees, heart rate 76, respiratory rate 22, blood pressure 91/59, O2 saturation 100% on room air. GENERAL: This is a chronically ill-looking and disheveled appearing 61-year-old male, lying in bed, in no acute distress. HEENT: Head is normocephalic, atraumatic. Pupils equal, round, and reactive to light and accommodation. Sclera is anicteric. Oral mucosa is dry. NECK: No JVD noted. No carotid bruits. No lymphadenopathy. No thyromegaly. CARDIOVASCULAR EXAM: S1-S2 heard. No murmurs, gallops, or rubs. Regular rate and rhythm. RESPIRATORY EXAM: Decreased breath sounds globally, but there is no rhonchi or wheezing or crackles. The patient is not using any accessory muscles or having work of breathing. ABDOMEN: Soft. Definitely distended and compatible with ascites. Bowel sounds present, but distant. No organomegaly noted. No signs of peritoneal irritation. EXTREMITIES: No clubbing or cyanosis, but marked 3+ pitting edema in both lower extremities. Peripheral pulses present, but diminished. NEUROLOGICAL EXAM: Patient is alert and oriented x3. Moves 4 extremities. No asterixis noted. LABORATORY DATA: White cell count 7.37, hemoglobin 13.4, hematocrit 36.7, platelets 63,000. Sodium 126 and a creatinine 3.7, total bilirubin 699. AST 146, ALT 69. ASSESSMENT AND PLAN: 1. Acute kidney injury secondary to dehydration because of this prolonged diarrhea. His creatinine 3.7 on last visit here in September 2018. The creatinine was completely normal. At this point, we will start gentle diureses with normal saline at 75 mL per hour. We will keep checking CBC daily. 2. Acute diarrhea because of his history of Clostridium difficile colitis. We are going to check Clostridium difficile antigen and toxin, as well as stool culture, white cell in the stool, ova and parasite. 3. Alcohol liver cirrhosis with ascites. We are going to order an ultrasound guided paracentesis. We will send ascitic fluid for analysis to the lab to see if there is any infection going on. 4. Thrombocytopenia most likely related to chronic liver disease. We will continue to monitor CBC daily. 5. Coronary artery disease. The patient is stable. Not having any chest pain. We will continue to monitor. 6. Hypertension. We will continue home medication. 7. Hyperlipidemia. We will continue home medications. 8. Alcohol dependence. Patient reports quit drinking alcohol 6 weeks ago. We encouraged to continue with that. DISPOSITION: We will continue to monitor this patient closely. We will consult Gastroenterology. We will go from there. cc: Gaurav Sierra MD
[2019-04-12] MEDS: NS 1,000 ML IV SCH (20:41)
[2019-04-12] MEDS ORDERED: XIFAXAN PO SCH (21:00)
[2019-04-12] MEDS: THIAMINE 100 MG in NS 50 ML IV SCH (21:44)
[2019-04-13] MEDS: PRILOSEC PO SCH (08:35)
[2019-04-13] MEDS: NS 1,000 ML IV SCH (08:41)
[2019-04-13 09:28] LABS: BASO# 0.01 X1000 (0.0-0.2); BASO% 0.1 % (0.0-0.8); EOS# 0.05 X1000 (0.0-0.7); EOS% 0.6 % (0.0-10.0); HEMATOCRIT 37.1 % (42.0-52.0); HEMOGLOBIN 13.6 g/dL (14.0-18.0); IMM GRAN# 0.02 X1000 (0.0-0.04); IMM GRAN% 0.2 % (0.0-0.5); LYMPH# 2.47 X1000 (1.2-3.4); LYMPH% 29.2 % (20.5-51.1); MCH 37.7 PG (27-31); MCHC 36.7 g/dL (33-37); MCV 102.8 FL (81-99); MONO# 1.08 X1000 (0.11-0.59); MONO% 12.8 % (1.7-9.3); MPV 10.5 FL (7.4-10.4); NEUT# 4.82 X1000 (1.4-6.5); NEUT% 57.1 % (42.2-75.2); PLT 49 X1000 (130-400); RBC 3.61 XMIL (4.7-6.1); RDW 16.3 % (11.5-14.5); WBC 8.45 X1000 (4.8-10.8)
[2019-04-13] MEDS ORDERED: NS 1,000 ML IV SCH ×2 (09:28→09:30)
[2019-04-13] MEDS ORDERED: NS 500 ML IV ONE (09:30)
[2019-04-13 09:34] LABS: INR 4.32; PROTIME 42.9 Seconds (11.0-16.0)
[2019-04-13 09:42] LABS: ALB/GLOB RATIO 0.5; CALCIUM 7.8 mg/dL (8.8-10.2); CREATININE 4.9 mg/dL (0.7-1.2); MAGNESIUM 1.8 mg/dL (1.5-2.7); PHOSPHORUS 7.2 mg/dL (2.7-4.5); POTASSIUM 4.5 mmol/L (3.5-5.1); TOTAL BILIRUBIN 5.99 mg/dL (0.20-1.00); TOTAL PROTEIN 5.7 g/dL (6.3-8.3)
--- NOTE | 2019-04-13 11:21 | Diag Imaging Result Doc PS360 ---
US RENAL 2 (RETROPER) COMPLETE - 04/13/2019 INDICATION: decreased renal function TECHNIQUE: COMPARISON: 03/24/2019 FINDINGS: The kidneys are normal. There is no mass or cyst. There is a small amount of ascites. The right kidney measures 12.3 x 5.4 x 5.7 cm. The left kidney measures 12.9 x 5.7 x 6.6 cm. IMPRESSION: Normal exam of the kidneys. Electronically signed by Tyler Banks 04/13/2019 11:18 AM
--- NOTE | 2019-04-13 11:48 | Diag Imaging Result Doc PS360 ---
US ABDOMEN (LTD) - 04/13/2019 INDICATION: ascitis, liver cirrhosis TECHNIQUE: Limited scan for ascites quantity COMPARISON: 03/24/2019 FINDINGS: There is a very small amount of ascites in the subhepatic fossa. Definitely less than a liter. IMPRESSION: Trace ascites. Paracentesis deferred. Electronically signed by Tyler Banks 04/13/2019 11:45 AM
[2019-04-13] MEDS: DIFICID PO SCH ×2 (11:55→21:13)
[2019-04-13] MEDS: VANCOCIN PO SCH ×3 (11:55→21:13)
--- NOTE | 2019-04-13 13:14 | PROGRESS NOTE ---
DATE: 04/13/2019 SUBJECTIVE: Patient reports still having diarrhea. Denies any fever or chills. OBJECTIVE: Vital Signs: Temperature degrees, heart rate 81, respiratory rate 19, blood pressure 102/66, O2 saturation 95% on room air. General: This is a chronically ill-appearing, 64-year- old male, lying in bed, in no acute distress. Cardiovascular: S1, S2 heard. No murmurs, gallops, or rubs. Regular rate and rhythm. Respiratory: Clear bilaterally to auscultation. No work of breathing or using accessory muscles. Abdomen: Soft, distended compatible with ascites. Bowel sounds present but distant. No organomegaly noted. No signs of peritoneal irritation. Extremities: No clubbing or cyanosis, but marked 3+ pitting edema in both lower extremities. Neurological: Patient alert oriented x3. Moves 4 extremities. LABORATORY DATA: White cell count 8.45, hemoglobin 13.6, hematocrit 37.1, platelets 49,000. Sodium 129. Creatinine 4.9. Phosphorus 7.2. Total bilirubin 5.99. C difficile antigen is positive. ASSESSMENT AND PLAN: 1. Clostridium difficile colitis. The patient came to the hospital complaining of 2 weeks of diarrhea, 5 to 10 times per day. He has a Clostridium difficile antigen that is positive. At this time, we have started him on vancomycin and Dificid. We will continue to monitor. 2. Acute kidney injury. Most likely secondary to dehydration because of this prolonged diarrhea of 2 months. Unfortunately, renal function, despite hydration, continues to get worse. I do not know if there is any sort of hepatorenal syndrome going on. I prefer to go ahead and consult Dr. Plascencia from Nephrology. The patient received 1 bolus of 500 mL of normal saline plus on normal saline at 125 mL/hour. We will continue to monitor this patient closely. 3. Alcohol liver cirrhosis with ascites. We have ordered an US-guided ultrasound paracentesis but apparently they did not find enough fluid to drain. I think we will in a couple of days. 4. Thrombocytopenia. Most likely related to chronic liver disease. We will continue to monitor CBC daily. 5. Coronary artery disease. Patient is stable, not complaining of any chest pain. 6. Hypertension. We will continue home medication. 7. Hyperlipidemia. We will continue with current medication. 8. Alcohol dependence. The patient has quit drinking alcohol 6 weeks ago. I do not think he is at risk of withdrawal so at this point, we will continue to monitor. 9. Disposition. We will continue to monitor this patient closely. Gastroenterology has been consulted. cc: Gaurav Sierra MD
[2019-04-13 14:21] LABS: URINE SOURCE CATH
--- NOTE | 2019-04-13 14:28 | NEPHROLOGY CONSULTATION ---
DATE: 04/13/2019 REASON FOR CONSULTATION: Acute kidney injury. HISTORY OF PRESENT ILLNESS: Mr. Qureshi is a 64-year-old white male with a history of coronary artery disease status post bypass grafting. History of alcohol dependence and cirrhosis. He has known esophageal varices as well as hypersplenism with thrombocytopenia. 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 He has had 3 episodes of Clostridium difficile colitis over the last year. In the last several weeks, he has been sick with diarrhea. Very low p.o. intake but ongoing diarrhea. No blood in his stool, which is aware. No chills or fevers. No shortness of breath. Marked and progressive weakness led him to see Dr. Mandujano where his blood pressure was quite low with systolic pressures less than 90. He was directed to the hospital. His initial inpatient blood pressure was 76/56. In this context, his initial creatinine was 3.7, 4.9 today. He has a history of normal kidney function and his last recorded creatinine in the hospital system was 0.6 on 09/06/2018. No voiding symptoms except for marked decreased urine output. His urine has been orange or dark in color. No vomiting. PAST MEDICAL HISTORY: As above. HOME MEDICATIONS: Include metoprolol, atorvastatin, pantoprazole. ALLERGIES: Penicillin. SOCIAL HISTORY: , lives with his , otherwise as above. FAMILY HISTORY, REVIEW OF SYSTEMS: Otherwise noncontributory. He does have a family history of kidney disease. OBJECTIVE: Vital signs: Blood pressure 102/66, heart rate 95, respiration 18, afebrile. General: Chronically ill man sitting at 45 degrees, no acute distress. Skin: Warm and dry. HEENT: Conjunctivae are pink. Pupils are equal. Oropharynx is dry. Tongue is normal. Dentition normal. Neck: Supple. Trachea is midline. Neck veins are not distended. No hepatojugular reflux. PMI nondisplaced. Heart: Regular rate and rhythm with a gallop. No rubs. Lungs: With equal breath sounds. No crackles or wheezes. Abdomen: Soft, nontender, bowel sounds are present. Significant distention. No palpable organomegaly. Extremities: Have 2+ edema. No clubbing or cyanosis. IMPRESSION: Acute kidney injury. Differential includes acute tubular necrosis, intravascular volume depletion, hepatorenal syndrome. I believe he has received adequate crystalloid resuscitation so I will stop his IV fluid and add albumin 50 g daily and observe. I counseled the patient and family regarding his potential diagnoses. We will reassess his lab values in the morning. Urine electrolytes are pending. Renal ultrasound was normal. cc: Kiet Plascencia MD [facility]
[2019-04-13 14:54] LABS: BILIRUBIN URINE SMALL (NEGATIVE); BLOOD URINE MODERATE (NEGATIVE); COLOR YELLOW; GLUCOSE URINE TRACE mg/dL (NEGATIVE); KETONE URINE TRACE mg/dL (NEGATIVE); LEUKOCYTES URINE LARGE (NEGATIVE); NITRITE URINE NEGATIVE (NEGATIVE); PH URINE 5.5; PROTEIN URINE 200 mg/dL (NEGATIVE); TURBIDITY URINE TURBID (CLEAR); UR EPITHELIAL CELLS <10 /HPF (<10); URINE BACTERIA NEGATIVE /HPF; URINE RBC <10 /HPF (<10); URINE WBC TNTC /HPF (<10); UROBILINOGEN URINE NORMAL (NORMAL)
[2019-04-13 14:59] LABS: UR CREAT RANDOM 340.2 mg/dL (14-26); UR PROT RANDOM 306.9 mg/dL
[2019-04-13 15:50] LABS: URINE CASTS GRANULAR PRESENT; URINE CRYSTALS NONE SEEN; URINE YEAST NONE SEEN
[2019-04-13] MEDS: ALBUMIN 25% IV SCH (16:03)
[2019-04-13] MEDS: THIAMINE 100 MG in NS 50 ML IV SCH (17:23)
--- NOTE | 2019-04-13 19:43 | GASTROENTEROLOGY CONSULTATION ---
DATE: 04/13/2019 REASON FOR CONSULTATION: History of cirrhosis of the liver, history of Clostridium difficile colitis. HISTORY OF PRESENT ILLNESS: This is a 64-year-old, male who has been seen in our office in the past. He was last seen in September of this year. Patient had initially been seen by Dr. Colbert in 2016. That is when he was diagnosed with cirrhosis of the liver. He had a liver biopsy in April 2017 that showed steatosis less than 5% of hepatocytes, inflammation grade 2 of 4 and nodular fibrosis stage 3 of 4. He had an EGD in September 2018 with esophageal varices that were banded. He then had a repeat EGD in October 2018 for rebanding of his esophageal varices. He did not follow up in the office with us since his EGD procedure in October. Patient reports onset of symptoms over the last several weeks. The patient states he has had a poor appetite for most of this year but things have become worse over the last several weeks. He has had return of diarrhea. He has had several episodes of Clostridium difficile colitis in the past. He reports having 5 to 10 loose stools. He has become weak, with some abdominal pain. He has noticed abdominal swelling and lower extremity swelling. He has had decrease in his urine output. He has denied any visible blood in the stool or black stools. No reported recent antibiotic use. His last colonoscopy was in 2016 that showed colon polyps and hemorrhoids. PAST MEDICAL HISTORY: 1. History of alcohol use. Apparently, he has quit approximately 6 weeks ago. 2. Coronary artery disease. History of coronary artery bypass graft. Follows with Dr. Sylvester. 3. Hypertension. 4. Hyperlipidemia. 5. History of atrial fibrillation. PAST SURGICAL HISTORY: Coronary artery bypass grafting in January 2018, hernia repair, last EGD October 2018 with esophageal variceal banding. Last colonoscopy in 2016 with findings of polyps and hemorrhoids. ALLERGIES: Penicillin causing a rash. HOME MEDICATIONS: Lipitor 40 mg daily, Lopressor 50 mg daily, Protonix 40 mg daily. SOCIAL HISTORY: History of alcohol abuse. Apparently quit about 6 weeks ago. History of tobacco use. Quit 29 years ago. He is . FAMILY HISTORY: History of coronary artery disease and congestive heart failure. REVIEW OF SYSTEMS: Per history of present illness. PHYSICAL EXAMINATION: Vital Signs: Temperature 97.9 degrees, pulse 95, respirations 18, blood pressure 102/66. GENERAL: The patient is awake and alert. He was coming back from the bathroom at the time of my evaluation, he is having some shortness of breath when walking around in the room.HEENT: Normocephalic, atraumatic. Pupils equal, round, reactive to light. Sclerae nonicteric. Cardiovascular: Regular rate and rhythm. Respiratory: Essentially clear. Some shortness of breath when he was walking from the bathroom to the bed. Abdomen: With some distention noted. Ultrasound showed only a small amount of fluid. There was not enough for collection. Extremities: Bilateral lower extremity edema noted. Neurologic: Cranial nerves 2-12 grossly intact. Patient is awake and alert. LABORATORY DATA: Hematology 8.45, hemoglobin 13.6, hematocrit 37.1, MCV 102.8, platelets [id number]. Coagulation: Pro time 42.9, INR 4.32, PTT 66.4. Chemistry: Sodium 129, potassium 4.5, chloride 93, CO2 19, BUN 49, creatinine 4.9, glucose 105, calcium 7.8, phosphorus 7.2, magnesium 1.8. Total bilirubin 5.99. AST 103, ALT 58, alkaline phosphatase 112, creatine kinase 520. ProBNP 607, total protein 5.7, albumin 2.0. ASSESSMENT AND PLAN: 1. Clostridium difficile colitis. Patient is on antibiotics. 2. Acute kidney injury. Patient has been seen by Nephrology. Follow their recommendations. 3. Cirrhosis of the liver. Patient has had liver biopsy in 2017 that showed steatosis less than 5% hepatocytes, inflammation grade 2 of 4 and fibrosis stage III of IV. We will continue to follow. 4. History of esophageal varices with last EGD and esophageal variceal banding in October 2018. 5. Thrombocytopenia. 6. Coronary artery disease, hypertension, hyperlipidemia. 7. History of alcohol abuse. Apparently the patient has now quit drinking. We will continue to follow and further plans will be made according to progress. I have discussed this case with Dr. Crain. Thank you for this consultation. Dictated by YUNI Parks for Timothy Crain MD cc: YUNI Dubon MD [facility]
[2019-04-13] MEDS: LEVAQUIN 250 MG/D5W 250 MG/50 ML IVPB IV SCH (21:13)
[2019-04-14] MEDS: VANCOCIN PO SCH ×4 (02:53→20:54)
[2019-04-14] MEDS: ALBUMIN 25% IV SCH (08:45)
[2019-04-14] MEDS: PRILOSEC PO SCH (08:52)
[2019-04-14] MEDS: DIFICID PO SCH ×2 (08:52→20:55)
[2019-04-14 11:12] LABS: PROTIME 47.1 Seconds (11.0-16.0)
[2019-04-14 11:13] LABS: INR 4.85
[2019-04-14 11:31] LABS: BASO# 0.01 X1000 (0.0-0.2); BASO% 0.1 % (0.0-0.8); EOS# 0.06 X1000 (0.0-0.7); EOS% 0.8 % (0.0-10.0); HEMATOCRIT 28.8 % (42.0-52.0); HEMOGLOBIN 10.4 g/dL (14.0-18.0); LYMPH# 2.18 X1000 (1.2-3.4); LYMPH% 28.3 % (20.5-51.1); MCH 38.1 PG (27-31); MCHC 36.1 g/dL (33-37); MCV 105.5 FL (81-99); MONO# 1.19 X1000 (0.11-0.59); MONO% 15.4 % (1.7-9.3); MPV 10.6 FL (7.4-10.4); NEUT# 4.27 X1000 (1.4-6.5); NEUT% 55.4 % (42.2-75.2); PLT 49 X1000 (130-400); RBC 2.73 XMIL (4.7-6.1); WBC 7.71 X1000 (4.8-10.8)
[2019-04-14 11:42] LABS: ALBUMIN 2.9 g/dL (3.5-5.0); CALCIUM 8.1 mg/dL (8.8-10.2); CREATININE 4.8 mg/dL (0.7-1.2); PHOSPHORUS 6.9 mg/dL (2.7-4.5); POTASSIUM 4.1 mmol/L (3.5-5.1); TOTAL BILIRUBIN 6.59 mg/dL (0.20-1.00); TOTAL PROTEIN 5.7 g/dL (6.3-8.3)
[2019-04-14 11:56] LABS: LYMPHS 6 % (21-51); MONO 6 % (1-9); SEGS 88 % (42-75)
--- NOTE | 2019-04-14 12:46 | PROGRESS NOTE ---
DATE: 04/14/2019 SUBJECTIVE: The patient reports still having diarrhea, but definitely less than previous days. So far, last night, he had 3 episodes. Denies any fever or chills. OBJECTIVE: Vital Signs: Temperature 97.1 degrees, heart rate 93, respiratory rate 17, blood pressure 135/68, O2 saturation 93% on room air. General: This is a chronically ill-appearing, 64- year-old, male, lying in bed in no acute distress. Cardiovascular: S1, S2 heard. No murmurs, gallops, or rubs. Regular rate and rhythm. Respiratory: Clear bilaterally to auscultation. No work of breathing or using accessory muscles. Abdomen: Soft, distended, compatible with ascites. Bowel sounds present, but distant. No organomegaly noted. No signs of peritoneal irritation. Extremities: No clubbing or cyanosis, but marked 3+ pitting edema in both lower extremities. Peripheral pulses present in both legs. Neurological: The patient is alert and oriented x3. Moves 4 extremities. LABORATORY DATA: White cell count 7.71, hemoglobin 10.4, hematocrit 28.8, platelets 49,000. INR 4.85. BMP remarkable for sodium 129 with creatinine 4.8. ASSESSMENT AND PLAN: 1. Clostridium difficile colitis. Will continue with vancomycin by mouth and Dificid. From 5 to 10 times per day diarrhea, he had just 3 episodes today, during the last 24 hours. Will continue to monitor. 2. Acute kidney injury, most likely secondary to dehydration. That could be a component of acute tubular necrosis. Creatinine has gotten worse from the day before yesterday, but from today is kind of stabilized. Dr. Plascencia from Nephrology is following this patient. Will follow recommendations. 3. Alcoholic liver cirrhosis with ascites. Aware. Apparently, there has not been any worsening ascites, so at this point, will continue to monitor. 4. Thrombocytopenia, most likely related to chronic liver disease. Will continue to monitor. 5. Coronary artery disease. The patient is stable, not complaining of any chest pain. Will continue to monitor. 6. Hypertension. Blood pressure is under control. Will continue with the same medication. 7. Hyperlipidemia. Will continue with current management. 8. Alcohol dependence. The patient reports having quit drinking alcohol 6 weeks ago. Not at risk for withdrawal at this point. 9. Disposition. Will continue to monitor this patient closely. cc: Gaurav Sierra MD
--- NOTE | 2019-04-14 15:55 | NEPHROLOGY PROGRESS NOTE ---
DATE: 04/14/2019 SUBJECTIVE: Patient is sitting up in bed. He states that his bladder feels full. OBJECTIVE: Vital signs: Temperature 98.1 degrees, pulse 88, respiratory rate 19, blood pressure 133/58. Intake 1.3 L. Output 175 mL were documented in the morning. General: Middle-aged gentleman sitting up in bed. He is chronically ill-appearing but in no acute distress. HEENT: Normocephalic, atraumatic. MATI. Oral mucosa dry. Neck: Supple without JVD. Cardiovascular: Regular rate and rhythm with a gallop. Pulmonary: He is clear bilaterally. Equal excursion. Abdomen: Distended but soft, with positive bowel sounds. : Not inspected. Gaxiola catheter. Moderately yellow urine. Extremities: There is 2+ edema. No clubbing, cyanosis. He is moving all extremities. Integumentary: Skin is warm and dry. Neurologic: Grossly nonfocal. LAB DATA: WBC of 7.7, hemoglobin 10.4, platelets of 49,000. Sodium 129, potassium 4.1, CO2 18, BUN 64, creatinine 4.8, phosphorus 6.9, albumin 2.9. ASSESSMENT AND PLAN: Acute kidney injury, acute tubular necrosis versus hepatorenal syndrome. We are giving him albumin over the next 3 days. We will observe his response with further orders to follow. We may need to add additional therapy if this does appear to be hepatorenal. Dictated by YUNI Horvath for Kiet Plascencia MD Face to face encounter, data reviewed, discussed with Art Moss on 04/14/19. I agree with the above assessment and plan of care. cc: Kiet Plascencia MD [facility]
--- NOTE | 2019-04-14 16:30 | EKG Report ---
Test Performed on : 04/14/2019 4:20:25 PM Test Reason : pvc's Blood Pressure : / mmHG Vent. Rate : 100 BPM Atrial Rate : 091 BPM P-R Int : 128 ms QRS Dur : 102 ms QT Int : 392 ms P-R-T Axes : 061 058 051 degrees QTc Int : 505 ms Sinus rhythm. with premature supraventricular complexes. Prolonged QT Abnormal ECG When compared with ECG of 06-SEP-2018 18:46, fusion complexes are no longer present premature ventricular complexes. are no longer present premature supraventricular complexes. are now present Confirmed by Katya SIMMONS, Fred Vizcaino ([id number]) on 04/14/2019 6:06:53 PM
[2019-04-14] MEDS: THIAMINE 100 MG in NS 50 ML IV SCH (16:35)
[2019-04-14] MEDS: LEVAQUIN 250 MG/D5W 250 MG/50 ML IVPB IV SCH (20:54)
[2019-04-15] MEDS: VANCOCIN PO SCH ×4 (03:26→21:11)
[2019-04-15 06:33] LABS: INR 4.42; PROTIME 43.7 Seconds (11.0-16.0)
[2019-04-15 06:34] LABS: ALB/GLOB RATIO 0.8; ALBUMIN 2.3 g/dL (3.5-5.0); CALCIUM 7.3 mg/dL (8.8-10.2); CREATININE 5.3 mg/dL (0.7-1.2); MAGNESIUM 1.8 mg/dL (1.5-2.7); PHOSPHORUS 6.1 mg/dL (2.7-4.5); POTASSIUM 3.4 mmol/L (3.5-5.1); TOTAL BILIRUBIN 7.54 mg/dL (0.20-1.00); TOTAL PROTEIN 5.1 g/dL (6.3-8.3)
[2019-04-15 06:50] LABS: BASO# 0.01 X1000 (0.0-0.2); BASO% 0.1 % (0.0-0.8); EOS# 0.17 X1000 (0.0-0.7); EOS% 2.2 % (0.0-10.0); HEMATOCRIT 24.8 % (42.0-52.0); HEMOGLOBIN 9.1 g/dL (14.0-18.0); IMM GRAN# 0.02 X1000 (0.0-0.04); IMM GRAN% 0.3 % (0.0-0.5); LYMPH# 1.92 X1000 (1.2-3.4); LYMPH% 25.3 % (20.5-51.1); MCH 36.8 PG (27-31); MCHC 36.7 g/dL (33-37); MCV 100.4 FL (81-99); MONO# 1.32 X1000 (0.11-0.59); MONO% 17.4 % (1.7-9.3); MPV 10.7 FL (7.4-10.4); NEUT# 4.16 X1000 (1.4-6.5); NEUT% 54.7 % (42.2-75.2); PLT 45 X1000 (130-400); RBC 2.47 XMIL (4.7-6.1); RDW 15.4 % (11.5-14.5)
[2019-04-15] MEDS: ALBUMIN 25% IV SCH ×2 (09:13→14:16)
[2019-04-15] MEDS: DIFICID PO SCH ×2 (09:14→21:11)
[2019-04-15] MEDS: PRILOSEC PO SCH (09:14)
[2019-04-15] MEDS ORDERED: SANDOSTATIN SUBQ SCH (12:00)
--- NOTE | 2019-04-15 12:45 | PROGRESS NOTE ---
DATE: 04/15/2019 SUBJECTIVE: Patient reports diarrhea continues to improve. At admission, he used to have between 5 to 10 bowel movements per day but now during the last 24 hours he has had only 1 to 2. Denies any fever or chills. Denies any nausea or vomiting. OBJECTIVE: Vital Signs: Temperature 97.6 degrees, heart rate 93, respiratory rate 17, blood pressure 138/60, O2 saturation 95% on room air. General Examination: This is a chronically ill- appearing 64-year-old male lying in bed in no acute distress. Cardiovascular: S1, S2 heard. No murmurs, gallops, or rubs. Regular rate and rhythm. Respiratory: Clear bilaterally to auscultation. No work of breathing or using accessory muscles. Abdomen: Soft, distended compatible with ascites. Bowel sounds present. No organomegaly. No signs of peritoneal irritation. Extremities: No clubbing or cyanosis, but marked 3+ pitting edema in both lower extremities. Peripheral pulses present in both legs. Neurological: Patient alert and oriented x3. Moves 4 extremities. LABORATORIES: White cell count 7.6, hemoglobin 9.1, hematocrit 24.8, platelets 485,000. Sodium 124, potassium 3.4, creatinine 5.3, bilirubin 7.54. ASSESSMENT AND PLAN: 1. Clostridium difficile colitis. Clinically, this patient is having less diarrhea. We will continue with vancomycin and Dificid. Will continue with the same management. 2. Acute kidney injury most likely due to dehydration. Creatinine continues to get worse unfortunately. I think it could be acute tubular necrosis. In any case, Dr. Plascencia from Nephrology is following with this patient. We will follow recommendations. 3. Alcoholic liver cirrhosis with ascites. His numbers are looking a little more worse with elevation of bilirubin, so I think at this point we will continue to monitor. 4. Thrombocytopenia. Platelet count getting worse. We will continue to monitor. 5. Cardiac. The patient is stable not complaining of any chest pain. We will continue to monitor. 6. Hypertension. Blood pressure is under control. We will continue with the same medication. 7. Hyperlipidemia. We will continue with current management. 8. Alcohol dependence. Actually, the patient is at risk of alcohol withdrawal at this point. We will continue to monitor. 9. Code status. DO NOT RESUSCITATE level 1. DISPOSITION: We will continue to monitor this patient closely. cc: Gaurav Sierra MD
[2019-04-15] MEDS: PROAMATINE PO SCH ×2 (14:21→21:10)
[2019-04-15] MEDS: SANDOSTATIN SUBQ SCH ×2 (14:21→21:10)
[2019-04-15] MEDS: THIAMINE 100 MG in NS 50 ML IV SCH (16:42)
--- NOTE | 2019-04-15 18:58 | GASTROENTEROLOGY PROGRESS NOTE ---
DATE: 04/15/2019 SUBJECTIVE: Patient states he is feeling a little better. He is being followed by Nephrology for acute kidney injury versus hepatorenal syndrome. His BUN and creatinine are worse today. OBJECTIVE: Vital Signs: Temperature 97.4 degrees, pulse 98, respirations 19, blood pressure 151/72. General: Patient is awake and alert in no acute distress. Abdomen: With distention and ascites noted. Lower extremity edema bilaterally. LABORATORY: WBC 7.60, hemoglobin 9.1, hematocrit 24.8, MCV 100.4, platelets 45,000. Coagulation, pro time 43.7, INR 4.42. Sodium 124, potassium 3.4, chloride 91, CO2 17, BUN 70, creatinine 5.3, glucose 91, total bilirubin 7.54, AST 63, ALT 42. ASSESSMENT AND PLAN: 1. Clostridium difficile colitis on antibiotics. Today he has only had 1 bowel movement so far and he states it was more formed. 2. Alcoholic liver cirrhosis. Continue current medications. Patient has sent in paperwork to [facility] for liver transplant evaluation. He states he is hoping to go to the [facility]. 3. Acute kidney injury versus hepatorenal syndrome. Continue recommendations per Nephrology. 4. Other medical problems, thrombocytopenia, coronary artery disease, hypertension, hyperlipidemia, continue current management per medical team. I have discussed this case with Dr. Crain. Dictated by YUNI Parks for Timothy Crain MD cc: YUNI Dubon MD
--- NOTE | 2019-04-15 22:56 | NEPHROLOGY PROGRESS NOTE ---
DATE: 04/15/2019 SUBJECTIVE: He says he does not feel well today. No specific complaint. OBJECTIVE: Blood pressure 171/73, heart rate 91, respirations 20, afebrile. Intake 1.4 L, output 700 mL.General: No acute distress. Skin: Warm and dry. Oropharynx: Dry. Neck: Neck veins are present with hepatojugular reflux. Heart: Regular with a gallop and soft murmur. Lungs: Equal breath sounds. No crackles. Diminished overall. Abdomen: Distended, but not taut. Bowel sounds are present. Extremities: Edema 3+. No clubbing or cyanosis. IMPRESSION/PLAN: Acute kidney injury. Low FeNa. Somewhat improved urine output today, but marginal, and his BUN and creatinine continue to rise. I will continue the albumin over the next several days, and go ahead and begin octreotide and midodrine for treatment of hepatorenal syndrome. He is developing hyponatremia that is worse. Moderate metabolic acidosis. Minimize his fluids otherwise. cc: Kiet Plascencia MD
[2019-04-16] MEDS: VANCOCIN PO SCH ×4 (02:26→20:07)
[2019-04-16] MEDS: SANDOSTATIN 500 MICROGM in D5W 100 ML IV SCH ×2 (05:01→15:21)
[2019-04-16] MEDS ORDERED: OCTREOTIDE IV SCH (06:00)
[2019-04-16] MEDS ORDERED: DEXTROSE IV SCH (06:00)
[2019-04-16 06:46] LABS: ALB/GLOB RATIO 1.1; ALBUMIN 2.6 g/dL (3.5-5.0); CALCIUM 7.6 mg/dL (8.8-10.2); CREATININE 4.3 mg/dL (0.7-1.2); PHOSPHORUS 5.4 mg/dL (2.7-4.5); POTASSIUM 3.8 mmol/L (3.5-5.1); TOTAL BILIRUBIN 8.45 mg/dL (0.20-1.00)
[2019-04-16 07:05] LABS: INR 4.51; PROTIME 44.4 Seconds (11.0-16.0)
[2019-04-16 07:49] LABS: BASO# 0.01 X1000 (0.0-0.2); BASO% 0.2 % (0.0-0.8); EOS% 3.8 % (0.0-10.0); HEMATOCRIT 21.1 % (42.0-52.0); HEMOGLOBIN 7.7 g/dL (14.0-18.0); MCH 37.6 PG (27-31); MCHC 36.5 g/dL (33-37); MCV 102.9 FL (81-99); MONO# 0.76 X1000 (0.11-0.59); MONO% 14.3 % (1.7-9.3); MPV 10.9 FL (7.4-10.4); NEUT# 2.76 X1000 (1.4-6.5); NEUT% 51.7 % (42.2-75.2); PLT 37 X1000 (130-400); RBC 2.05 XMIL (4.7-6.1); WBC 5.33 X1000 (4.8-10.8)
[2019-04-16] MEDS: PROAMATINE PO SCH ×3 (08:58→20:08)
[2019-04-16] MEDS: PRILOSEC PO SCH (08:58)
[2019-04-16] MEDS: DIFICID PO SCH ×2 (08:58→20:08)
[2019-04-16] MEDS ORDERED: THERA M PLUS PO ONE (10:04)
--- NOTE | 2019-04-16 10:40 | PROGRESS NOTE ---
DATE: 04/16/2019 SUBJECTIVE: The patient reports he has no more episodes of diarrhea. Actually, his bowel movements are getting more consistent. Denies any fever or chills. OBJECTIVE: Vital Signs: Temperature 98.8 degrees, heart rate 82, respiratory rate 18, blood pressure 108/55, O2 saturation 92% on room air. General: This is a chronically-appearing 64-year- old male, lying in bed, in no acute distress. Cardiovascular: S1, S2 heard. No murmurs, gallops, or rubs. Regular rate and rhythm. Respiratory: Clear bilaterally to auscultation. No work of breathing or using accessory muscles. Abdomen: Abdomen is soft, distended, compatible with ascites. Bowel sounds present. No organomegaly. No signs of peritoneal irritation. Extremities: No clubbing or cyanosis, but marked 3+ pitting edema in both lower extremities. Peripheral pulses present in both legs. Neurological: Patient is alert and oriented x3. Moves 4 extremities. LABORATORY DATA: Reviewed. The white cell count is 5.33, hemoglobin 7.7, hematocrit 31.1, platelets 37,000. With INR 4.51. Sodium 128, potassium 3.8 and creatinine 4.3. ASSESSMENT AND PLAN: 1. Clostridium difficile colitis. Clinically, this patient continues to improve. He is on vancomycin by mouth and Dificid for the last 4 days. Since then, he is not having any more diarrhea. Actually his stools are getting more consistent. So at this point, we will continue with same management. 2. Hepatorenal syndrome. Dr. Plascencia has been following this patient. Creatinine started to improve from yesterday to today. Dr. Plascencia has started him on Octreotide and Midodrine. Since then, we have seen improvement in renal function. At this point, we will continue with the same management. 3. Alcohol liver cirrhosis with ascites. We will continue to monitor. 4. Thrombocytopenia. The platelet count continues to get worse. That is most likely related to alcoholic liver cirrhosis. We will continue to monitor. 5. Coronary artery disease. Patient is not complaining of any chest pain. We will continue to monitor. 6. Hypertension. Blood pressure is under control. We will continue with same medications. 7. Hyperlipidemia. We will continue with the same home medications. 8. Alcohol dependence. The patient is not at risk of alcohol withdrawal at this point, because he has quit drinking alcohol 6 weeks ago. We will continue to monitor. 9. Code status. Do not resuscitate level 1. 10. Disposition. At this point, we will continue to monitor this patient closely. cc: Gaurav Sierra MD
[2019-04-16] MEDS: ALBUMIN 25% IV SCH (10:53)
--- NOTE | 2019-04-16 15:40 | NEPHROLOGY PROGRESS NOTE ---
DATE: 04/16/2019 SUBJECTIVE: Mr. Qureshi is feeling much better today. He anticipates getting out of bed and having a shower. Diarrhea is improved. OBJECTIVE: Vital Signs: Blood pressure 115/53, heart rate 71, respiration 18, afebrile. Intake 800mL, output 2.4 L. PHYSICAL EXAMINATION: No acute distress.Skin: Warm and dry. Conjunctivae are pink. Neck: Neck veins not appreciated. Heart: Regular. No gallops. Lungs: Equal. No crackles. Abdomen: Distended, soft, nontender, bowel sounds present. Extremities: 2+ edema. No clubbing or cyanosis. IMPRESSION: Acute kidney injury. Likely hepatorenal syndrome. He had a nice improvement in urine output and falling creatinine having added midodrine and octreotide. I will continue this therapy through the weekend and observe his response. He remains volume overloaded. Moderate metabolic acidosis with minimal anion gap. cc: Kiet Plascencia MD
[2019-04-17] MEDS: SANDOSTATIN 500 MICROGM in D5W 100 ML IV SCH ×4 (01:30→22:33)
[2019-04-17] MEDS: VANCOCIN PO SCH ×4 (01:30→20:00)
[2019-04-17 06:28] LABS: INR 3.97
[2019-04-17 06:38] LABS: PROTIME 40.1 Seconds (11.0-16.0)
[2019-04-17 06:41] LABS: BASO# 0.01 X1000 (0.0-0.2); BASO% 0.2 % (0.0-0.8); EOS# 0.17 X1000 (0.0-0.7); EOS% 3.1 % (0.0-10.0); LYMPH% 34.7 % (20.5-51.1); MONO# 0.92 X1000 (0.11-0.59); MONO% 16.8 % (1.7-9.3); MPV 10.3 FL (7.4-10.4); NEUT# 2.47 X1000 (1.4-6.5); NEUT% 45.2 % (42.2-75.2)
[2019-04-17 06:42] LABS: HEMATOCRIT 20.5 % (42.0-52.0); HEMOGLOBIN 7.3 g/dL (14.0-18.0); MCH 36.3 PG (27-31); MCHC 35.6 g/dL (33-37); RBC 2.01 XMIL (4.7-6.1); RDW 15.6 % (11.5-14.5); WBC 5.47 X1000 (4.8-10.8)
[2019-04-17 06:51] LABS: ALB/GLOB RATIO 1.3; ALBUMIN 2.9 g/dL (3.5-5.0); CALCIUM 7.3 mg/dL (8.8-10.2); POTASSIUM 3.1 mmol/L (3.5-5.1); TOTAL BILIRUBIN 9.9 mg/dL (0.20-1.00); TOTAL PROTEIN 5.1 g/dL (6.3-8.3)
[2019-04-17 06:55] LABS: PLT 38 X1000 (130-400)
[2019-04-17] MEDS ORDERED: KLOR-CON PO ONE (07:40)
[2019-04-17] MEDS: DIFICID PO SCH ×2 (08:13→20:01)
[2019-04-17] MEDS: PROAMATINE PO SCH ×3 (08:13→20:07)
[2019-04-17] MEDS: ALBUMIN 25% IV SCH (08:13)
[2019-04-17] MEDS: PRILOSEC PO SCH (08:13)
[2019-04-17] MEDS ORDERED: NS 500 ML IV ONE (08:42)
--- NOTE | 2019-04-17 09:00 | PROGRESS NOTE ---
DATE: 04/17/2019 SUBJECTIVE: The patient reports feeling fine. No more episodes of diarrhea. Actually, his bowel movements are getting more consistent. He reports making a good amount of urine. OBJECTIVE: Vital Signs: Temperature 97.9 degrees, heart rate 88, respiratory rate 18, blood pressure 116/57, O2 saturation 93% on room air. General: This is a chronically ill-appearing, 65- year-old, male, lying in bed in no acute distress. Cardiovascular: S1, S2 heard. No murmurs, gallops, or rubs. Regular rate and rhythm. Respiratory: Clear bilaterally to auscultation. No work of breathing or using accessory muscles. Abdomen: Soft, distended compatible with ascites. Bowel sounds present. No organomegaly. No signs of peritoneal irritation. Extremities: No clubbing, cyanosis. There is 2+ pedal edema in both lower extremities. Peripheral pulses present in both legs. Neurological: The patient is alert and oriented x3. Moves all 4 extremities. LABORATORY DATA: White cell count 7.3, hemoglobin 20.5, platelets 38,000. INR 3.97. Sodium 129, potassium 3.1, creatinine 3.0, bilirubin 9.9. ASSESSMENT AND PLAN: 1. Clostridium difficile colitis. Clinically, the patient continues to improve. He has received, so far, 5 days of vancomycin and Dificid. No more episodes of diarrhea. Will continue with the same management. 2. Hepatorenal syndrome. After the patient has been started on octreotide and midodrine, renal function is clinically improving. At this point, will continue to monitor this patient closely. 3. Alcoholic liver cirrhosis with ascites. Will continue to monitor. 4. Thrombocytopenia. Platelet count continues to get worse, most likely related to alcohol liver cirrhosis. Will continue to monitor. 5. Anemia of chronic disease. At this point, we are going to provide 1 unit of blood, and check labs tomorrow. 6. Alcohol dependence. The patient has quit drinking alcohol 6 weeks ago, so I do not think he is going to go through alcohol withdrawal. 7. Code status. DO NOT RESUSCITATE level 1. 8. Disposition. Will continue to monitor this patient closely. cc: Gaurav Sierra MD
[2019-04-18] MEDS: VANCOCIN PO SCH ×4 (02:16→20:05)
[2019-04-18 06:26] LABS: INR 3.9; PROTIME 39.5 Seconds (11.0-16.0)
[2019-04-18 06:36] LABS: BASO# 0.02 X1000 (0.0-0.2); BASO% 0.4 % (0.0-0.8); EOS% 1.9 % (0.0-10.0); HEMATOCRIT 20.9 % (42.0-52.0); HEMOGLOBIN 7.4 g/dL (14.0-18.0); LYMPH# 1.98 X1000 (1.2-3.4); LYMPH% 37.3 % (20.5-51.1); MCH 36.1 PG (27-31); MCHC 35.4 g/dL (33-37); MONO# 1.04 X1000 (0.11-0.59); MONO% 19.6 % (1.7-9.3); MPV 9.7 FL (7.4-10.4); NEUT# 2.17 X1000 (1.4-6.5); NEUT% 40.8 % (42.2-75.2); RBC 2.05 XMIL (4.7-6.1); RDW 16.8 % (11.5-14.5); WBC 5.31 X1000 (4.8-10.8)
[2019-04-18 06:42] LABS: ALB/GLOB RATIO 1.3; ALBUMIN 2.9 g/dL (3.5-5.0); CALCIUM 7.6 mg/dL (8.8-10.2); CREATININE 2.1 mg/dL (0.7-1.2); POTASSIUM 3.1 mmol/L (3.5-5.1); TOTAL BILIRUBIN 11.58 mg/dL (0.20-1.00); TOTAL PROTEIN 5.1 g/dL (6.3-8.3)
[2019-04-18 06:54] LABS: PLT 36 X1000 (130-400)
[2019-04-18] MEDS: PROAMATINE PO SCH ×3 (08:57→20:05)
[2019-04-18] MEDS: SANDOSTATIN 500 MICROGM in D5W 100 ML IV SCH ×2 (08:58→18:41)
[2019-04-18] MEDS: PRILOSEC PO SCH (09:00)
[2019-04-18] MEDS: DIFICID PO SCH (09:00)
--- NOTE | 2019-04-18 10:11 | PROGRESS NOTE ---
DATE: 04/18/2019 SUBJECTIVE: Patient reports feeling fine. Reports his bowel movements are almost normal. He also reports making a good amount of urine. OBJECTIVE: Vital Signs: Temperature 98 degrees, heart rate 84, respiratory rate 16, blood pressure 144/58, and O2 saturation 95% on room air. General: This is a chronically ill-appearing 65-year-old male lying in bed in no acute distress. Cardiovascular: S1, S2 heard. No murmurs, gallops, or rubs. Regular rate and rhythm. Respiratory: Clear bilaterally to auscultation. No work of breathing or using accessory muscles. Abdomen: Soft, distended. Compatible with some ascites. Bowel sounds present. No organomegaly. No signs of peritoneal irritation. Extremities: No clubbing or cyanosis. There is 2+ pitting edema in both lower extremities. Peripheral pulses present in both legs. Neurological: The patient is alert and oriented x3. Moves 4 extremities. LABORATORY DATA: White cell count 5.31, hemoglobin 7.4, hematocrit 20.9 and platelets 36,000 with INR 3.9, hemoglobin 3.1 hematocrit 30, and creatinine 2.1. Total bilirubin 11.58. ASSESSMENT AND PLAN: 1. Clostridium difficile colitis. Clinically, this patient continues to improve. That is basically the reason why he came to the hospital at presentation. He was having diarrhea for almost 2 months. The patient has been started on vancomycin and Dificid. Today, is day #6 for both treatment. Clinically, as we mentioned before, patient is improving. His stools are almost back to normal. We will continue with same management. 2. Hepatorenal syndrome. The patient continues to improve. Patient has been started on octreotide and midodrine as per Dr. Plascencia. Renal function was trending up at admission, but is getting better during the last few days. I think at this point, we will continue to monitor. Will follow recommendations from Dr. Plascencia. Good urine output. 3. Alcoholic liver cirrhosis with ascites. The patient is alcoholic and quit drinking alcohol 6 weeks ago. His bilirubin started going up. I do not know if on top of his baseline cirrhosis he has any other problems that could explain this worsening hyperbilirubinemia like choledocholithiasis. Will do abdomen US today and we will see what Dr. Crain from GI has to say. 5. Thrombocytopenia. Since admission, platelet count started to get worse. There are no signs of bleeding. At this point, we will continue to monitor. He is not a candidate for any blood transfusion yet. 6. Anemia of chronic disease. The patient has received 1 unit of blood yesterday because his hemoglobin was 7.3, but the hemoglobin did improve. Actually, it dropped a little bit. There are no signs of GI bleeding. We will see what GI has to say. 7. Code status. Do not resuscitate level 1. 8. Disposition. At this point, the patient is stable. I am concerned about his consistent elevation of bilirubin. We will check another abdominal ultrasound. We will see what Dr. Crain has to say. cc: Gaurav Sierra MD [facility]
--- NOTE | 2019-04-18 11:01 | Diag Imaging Result Doc PS360 ---
EXAM: US ABDOMEN-COMPLETE 04/18/2019 HISTORY: worsening hyperbilirrubinemia TECHNIQUE: Abdominal ultrasound COMMENT: The pancreas is obscured. The visualized portions of the aorta and inferior vena cava are within normal limits, although on the previous study of 03/24/2019 the aorta was seen to be distended. There is ascites. The liver is slightly nodular in contour and hyperechoic. There is no evidence of biliary dilatation the common bile duct measuring less than 6 mm. There is antegrade flow in the portal vein. The kidneys are without evidence of hydronephrosis or mass. The spleen is enlarged measuring over 15 cm. There is some apparent debris in the gallbladder. There is no sonographic Ramirez sign. Compared to the previous examination of 04/13/2019 the ascites was present previously. Compared to 03/24/2019 there has been no appreciable change. IMPRESSION: Cirrhosis with splenomegaly and ascites. Debris in the gallbladder. Electronically signed by Albert Chopra 04/18/2019 10:59 AM
--- NOTE | 2019-04-18 16:38 | NEPHROLOGY PROGRESS NOTE ---
DATE: 04/18/2019 TIME SEEN: 0640. SUBJECTIVE: Mr. Qureshi is resting quietly in bed. States that he would like to go home today. States that he is feeling better. OBJECTIVE: Vital Signs: Temperature 98.2 degrees, blood pressure 126/50, heart rate 84, respirations 20. He is on room air. Last recorded saturation 95%. He has had 1,736 in, 3,500 out to Gaxiola catheter. Labs: Sodium 134, potassium 3.1, chloride 100, CO2 23, BUN 42, creatinine is down to 2.1. His glucose is 101. The patient has an anion gap of 11. His calcium is 7.7, albumin of 2.9. White count 5.31, hemoglobin 7.4, hematocrit 20.9, with a platelet count of 36,000. The patient had an abdominal ultrasound completed this a.m. showing cirrhosis with splenomegaly and ascites with debris in the gallbladder. Compared to 03/24 they have indicated that there are no appreciable changes. PHYSICAL EXAMINATION: General: This is a 64-year-old white male. He is resting quietly in bed. He appears chronically ill, no acute distress. Skin: Warm and dry. HEENT: Normocephalic, atraumatic. Conjunctiva is pale. He has MATI. Mucous membranes are dry. Neck: Supple. Trachea midline. He has positive JVD with hepatojugular reflux. He has an IV site to the left IJ. Cardiovascular: Regular rate and rhythm. He has a systolic murmur present. Lungs: Clear to auscultation bilaterally. Equal excursion. On room air. Abdomen: Distended. Positive swelling. Positive bowel sounds. Extremities: The patient has 1+ lower extremity edema. He has edema to the upper extremities bilateral, right greater than left, with a dressing over his left forearm. Integumentary: Patient has different stages of ecchymoses in healing stages to bilateral upper extremities. Neurological: He is alert and oriented x3. ASSESSMENT AND PLAN: 1. Acute kidney injury. Likely this is hepatorenal. Patient has responded well to IV albumin, midodrine, and octreotide. His creatinine is down to 2.1. He has had adequate urine output of 3,500 just in the last 24 hours. We have discussed patient's discharged, to continue on his midodrine and octreotide on discharge. We will ask social director to assist in getting information from his pharmacy in regards with cost to continue these medications on a short-term basis on discharge. 2. Electrolytes and acid-base balance. Patient has hypokalemia today, potassium of 3.1. Supplement orders have been given. 3. Anemia. Patient's hemoglobin is 7.3. He has received 2 units of packed red blood cells during his hospital stay. 4. Decompensated liver failure with cirrhosis. The patient has responded nicely to midodrine and octreotide as mentioned. HE states he is in the transplant eval process. I would like to thank you for allowing us to follow with this patient. Dictated by YUNI Mishra for Kiet Plascencia MD Face to face encounter, data reviewed, discussed with Jose Hdz on 04/19/19. I agree with the above assessment and plan of care. cc: YUNI Mishra MD [facility]
--- NOTE | 2019-04-18 18:45 | GASTROENTEROLOGY PROGRESS NOTE ---
DATE: 04/18/2019 SUBJECTIVE: Patient is awake and alert. He is sitting on the side of the bed. His is at the bedside. He denies current complaints. I believe he will be moved to the medical floor today. He has had an elevation in his bilirubin. Abdominal ultrasound done today showed cirrhosis with splenomegaly and ascites with debris in the gall bladder. There is no evidence of biliary dilatation. Common bile duct measures 6 mm. OBJECTIVE: Vital Signs: Temperature 98 degrees, pulse 78, respirations 18, blood pressure 140/74. General: The patient is awake, alert, in no acute distress. LABORATORY: Hematology: WBC 5.31, hemoglobin 7.4, hematocrit 20.9, MCV 102.0, platelet 36,000. Coagulation ProTime 39.5, INR 3.90. Chemistry: Sodium 134, potassium 3.1, chloride 100, CO2 of 23, BUN 42, creatinine 2.1, glucose 101, total bilirubin 11.58, AST 64, ALT 37, alkaline phosphatase 89. ASSESSMENT AND PLAN: 1. Clostridium difficile colitis, antigen positive. We will currently discontinue Dificid. He is on vancomycin. Recommend to continue that for a total of 14 days. 2. Elevated bilirubin. Most likely result of rehydration. We will continue to monitor. Ultrasound did not show any definite stones. It showed some gallbladder debris with normal common bile duct. Patient is at high risk for cholecystectomy. We will continue to follow. 3. Alcoholic liver disease and cirrhosis of the liver. Recommend the patient avoid all alcohol. Continue current medications. Recommend he follow up with us as an outpatient. 4. Hepatic renal syndrome. Patient has been followed by Dr. Maharaj. He has been started on octreotide and midodrine. His BUN and creatinine have improved. Again, we will continue to follow during his hospital course. We will monitor his bilirubin. Hopefully that will start to decrease. Recommend he follow up in the office after discharge. The patient was also seen by Dr. Crain. Dictated by YUNI Parks for Timothy Crain MD cc: YUNI Dubon MD [facility]
[2019-04-19] MEDS: VANCOCIN PO SCH ×4 (01:49→20:23)
[2019-04-19] MEDS: SANDOSTATIN 500 MICROGM in D5W 100 ML IV SCH ×3 (04:10→23:34)
[2019-04-19 08:33] LABS: ALB/GLOB RATIO 1.1; ALBUMIN 2.7 g/dL (3.5-5.0); CALCIUM 7.8 mg/dL (8.8-10.2); CREATININE 1.3 mg/dL (0.7-1.2); POTASSIUM 3.2 mmol/L (3.5-5.1); TOTAL BILIRUBIN 12.6 mg/dL (0.20-1.00); TOTAL PROTEIN 5.2 g/dL (6.3-8.3)
[2019-04-19 09:30] LABS: INR 3.85; PROTIME 39.1 Seconds (11.0-16.0)
[2019-04-19] MEDS: PROAMATINE PO SCH ×3 (09:35→20:23)
[2019-04-19] MEDS: PRILOSEC PO SCH (09:35)
[2019-04-19 10:45] LABS: BASO# 0.03 X1000 (0.0-0.2); BASO% 0.5 % (0.0-0.8); EOS# 0.14 X1000 (0.0-0.7); EOS% 2.4 % (0.0-10.0); HEMATOCRIT 22.7 % (42.0-52.0); HEMOGLOBIN 7.8 g/dL (14.0-18.0); LYMPH# 2.12 X1000 (1.2-3.4); LYMPH% 36.5 % (20.5-51.1); MCH 36.6 PG (27-31); MCHC 34.4 g/dL (33-37); MCV 106.6 FL (81-99); MONO% 20.7 % (1.7-9.3); MPV 11.9 FL (7.4-10.4); NEUT# 2.32 X1000 (1.4-6.5); NEUT% 39.9 % (42.2-75.2); PLT 38 X1000 (130-400); RBC 2.13 XMIL (4.7-6.1); RDW 17.4 % (11.5-14.5); WBC 5.81 X1000 (4.8-10.8)
[2019-04-19 10:54] LABS: BANDS 2 % (0-1); HYPOCHROM 1+; LYMPHS 30 % (21-51); MONO 18 % (1-9); SEGS 48 % (42-75)
[2019-04-19] MEDS ORDERED: KLOR-CON PO ONE (16:54)
--- NOTE | 2019-04-19 18:04 | PROGRESS NOTE ---
DATE: 04/19/2019 SUBJECTIVE: Patient has no major complaints. OBJECTIVE: Blood pressure 122/53, heart rate of 82, respiratory rate of 18, temperature was 98.2, 96 percent on room air.Cardiovascular: Regular rate and rhythm. Pulmonary: Bilateral breath sounds clear to auscultation. GI: Was soft, nontender, nondistended. Bowel sounds are positive. Extremity: No clubbing or cyanosis. Lymphatic: No peripheral edema. Neurological: Nonfocal. LABORATORY DATA: Showed white count of 5, hemoglobin and hematocrit of 7 and 22, platelets of 38,000. INR 3.8, potassium of 3.2, creatinine of 1.3, T bilirubin is still high at 12.6, AST of 57. PROBLEM LIST: 1. Clostridium difficile colitis. Patient stable. He is on vancomycin and Dificid day 7. 2. Acute kidney injury in the setting of cirrhosis much improved with octreotide and midodrine. We are looking at potentially doing that as an outpatient. I discussed with Dr. Plascencia about doing octreotide. He recommended versus continuous infusion possible subcu injection twice a day of the 100 dose and we will follow. 3. Cirrhosis alcoholic. He quit alcohol he reports 2 months ago. It is documented 6 weeks ago. I think he will have to be sober for 6 months before being able to be listed. 4. Thrombocytopenia is pretty present. Will continue to monitor. 5. Anemia, stable. DISPOSITION: At think hopefully home soon at the discretion of the primary consultants. We will continue to follow. cc: Ward Álvarez MD
--- NOTE | 2019-04-19 20:26 | NEPHROLOGY PROGRESS NOTE ---
DATE: 04/19/2019 Time seen: 07:50. SUBJECTIVE: Mr. Qureshi is resting quietly in bed. His is at his bedside. He states that he is feeling much better, making good urine. OBJECTIVE: His most recent vital signs: Temperature 98.6 degrees, blood pressure 111/48, heart rate is 88, respirations are 24. He is on room air last recorded saturation 96%. He has had 600 in; he has had 1625 out to Gax[place]ola catheter. LABORATORY DATA: Sodium 137, potassium 3.2, chloride 102, CO2 24, BUN 29, creatinine 1.3, glucose 108, anion gap 11 calcium 7.8, albumin 2.7. White count 5.81, hemoglobin 7.8, hematocrit 22.7, platelet count 38,000. His pro time is 39.1 with an INR of 3.85. The patient has a total bilirubin elevated today of 12.6 from 11.58 yesterday. His AST is 57 with an ALT of 36. Blood cultures show no growth after 5 days. PHYSICAL EXAMINATION: General: This is a 64-year-old white male. He is resting quietly in bed. He appears chronically ill. No acute distress. Skin: Warm and dry. HEENT: Normocephalic, atraumatic. Conjunctivae pale. He has MATI. Mucous membranes dry. Neck: Supple trachea midline. The patient has trace JVD with positive hepatic jugular reflux. IV site remains to the left IJ. Cardiovascular: Regular rate and rhythm. Systolic murmur is present. Lungs: Clear to auscultation anteriorly, equal excursion, poor inspiratory effort. Remains on room air. Abdomen: Distended, positive swelling with ascites. The patient complains of some tenderness on palpation. Extremities: Have 1+ lower extremity edema. No clubbing or cyanosis. Upper extremities continue right greater than left dependent edema present. Neurological: He is alert and oriented x3. Integumentary: Patient has different stages of ecchymoses and healing stages to upper and lower extremities. ASSESSMENT AND PLAN: 1. Acute kidney injury. More than likely hepatorenal syndrome. The patient has responded nicely to midodrine and octreotide. Creatinine today is down to 1.3. Adequate urine output of greater than 1.5 L in the last 24 hours. We have encouraged patient to stay on a 1 L fluid restriction with a low salt 2 g sodium diet. The patient states understanding 2. Elevated LFTs with cirrhosis with decompensated liver failure. This is followed by Dr. Crain. The family states that Dr. Crain would like to keep the patient in the hospital over the next 4 to 5 days to continue with his octreotide infusion for a total of 1 week. We have spoken to the primary care in regards with continued monitoring in hospital or on an outpatient basis. 3. Electrolytes and acid-base balance. These are fairly stable with a potassium of 3.2. 4. Anemia. This remains low but stable. Hemoglobin of 7.8. We would like to thank you for allowing us to follow with this patient. Dictated by YUNI Mishra for Kiet Plascencia MD Face to face encounter, data reviewed, discussed with Jose Hdz on 04/19/19. I agree with the above assessment and plan of care. cc: YUNI Mishra MD [facility]
[2019-04-20] MEDS: SANDOSTATIN 500 MICROGM in D5W 100 ML IV SCH ×3 (00:01→21:42)
[2019-04-20] MEDS: VANCOCIN PO SCH ×4 (02:59→21:42)
[2019-04-20 07:46] LABS: BASO# 0.03 X1000 (0.0-0.2); BASO% 0.5 % (0.0-0.8); EOS# 0.15 X1000 (0.0-0.7); EOS% 2.6 % (0.0-10.0); HEMATOCRIT 22.5 % (42.0-52.0); HEMOGLOBIN 7.8 g/dL (14.0-18.0); IMM GRAN# 0.03 X1000 (0.0-0.04); IMM GRAN% 0.5 % (0.0-0.5); LYMPH# 2.29 X1000 (1.2-3.4); LYMPH% 39.1 % (20.5-51.1); MCH 36.3 PG (27-31); MCHC 34.7 g/dL (33-37); MCV 104.7 FL (81-99); MONO# 1.01 X1000 (0.11-0.59); MONO% 17.3 % (1.7-9.3); MPV 9.9 FL (7.4-10.4); NEUT# 2.34 X1000 (1.4-6.5); RBC 2.15 XMIL (4.7-6.1); RDW 17.8 % (11.5-14.5); WBC 5.85 X1000 (4.8-10.8)
[2019-04-20 07:54] LABS: AGAP 10; ALBUMIN 2.6 g/dL (3.5-5.0); ALKALINE PHOSPHATASE 100 U/L (32-122); BUN 22 mg/dL (8-22); CALCIUM 7.8 mg/dL (8.8-10.2); CHLORIDE 102 mmol/L (98-107); COSMO 275; CREATININE 1.2 mg/dL (0.7-1.2); ESTIMATED GFR > 60; GLUCOSE 98 mg/dL (70-104); GOT 64 U/L (10-34); GPT 39 U/L (10-44); POTASSIUM 3.6 mmol/L (3.5-5.1); SODIUM 136 mmol/L (136-145); TCO2 24 mmol/L (25-35); TOTAL BILIRUBIN 13.58 mg/dL (0.20-1.00); TOTAL PROTEIN 5.2 g/dL (6.3-8.3)
[2019-04-20] MEDS: PRILOSEC PO SCH (08:30)
[2019-04-20] MEDS: PROAMATINE PO SCH ×3 (08:30→21:41)
[2019-04-20 09:08] LABS: PLT 39 X1000 (130-400)
--- NOTE | 2019-04-20 09:41 | NEPHROLOGY PROGRESS NOTE ---
DATE: 04/20/2019 TIME SEEN: 0715. SUBJECTIVE: Mr. Qureshi is resting quietly in bed. Head of the bed is elevated. He states that he is feeling well today. Will possibly remain in the hospital over the next several days to finish his dosing of octreotide. VITAL SIGNS: Temperature 98 degrees, blood pressure 95/45, heart rate 82, respirations are 12. He is currently on room air. Last recorded saturation is 97%. He has had 630 in and 1800 out to Gaxiola catheter. LABS: Sodium is 136, potassium 3.6, chloride is 102, CO2 is 24, BUN 22, creatinine 1.2, glucose is 98, anion gap of 10, calcium 7.8, albumin 2.6. White count 5.85, hemoglobin 7.8, hematocrit 22.5, with a platelet count of 39,000. PHYSICAL EXAMINATION: General: This is a 64-year-old, white male. He is resting quietly in bed. His skin is warm and dry. HEENT: Normocephalic, atraumatic. Conjunctivae are pale pink. He has MATI. Mucous membranes are dry. Neck: Supple. Trachea midline. No evidence of JVD. Positive hepatojugular reflux. IV remains to the left IJ. Cardiovascular: Regular rate and rhythm. He has a systolic murmur with an S4. Lungs: Clear to auscultation bilaterally. Equal excursion, on room air. Abdomen: Soft, nontender. Slightly distended. Positive bowel sounds. Genitourinary: Not inspected. Gaxiola catheter is in place. Adequate urine out. Extremities: He has upper extremity edema with 2+ lower extremity edema. Integumentary: The patient has bruising noted to the right upper extremity, to the inferior aspect of the right upper arm with different stages of ecchymoses and healing. Neurological: Alert and oriented x3. ASSESSMENT AND PLAN: 1. Acute kidney injury. This has been hepatorenal. Patient has returned to his historical baseline with a creatinine of 1.2. Adequate urine output is documented. The patient remains on octreotide and midodrine. No further indications from our intervention. We will sign off at this time. OK to stop midodrine and octreotide at the time of discharge. rg 2. Cirrhosis with decompensated liver failure. This is followed by Dr. Crain and the primary care. 3. Electrolytes, acid-base balance, and anemia. These are stable. I would like to thank you for allowing us to follow with this patient. We will sign off at this time and remain available if indicated. I would like to thank you for allowing us to follow with this patient. Dictated by YUNI Mishra for Kiet Plascencia MD Face to face encounter, data reviewed, discussed with Jose Hdz on 04/20/19. I agree with the above assessment and plan of care. cc: YUNI Mishra MD [facility]
--- NOTE | 2019-04-21 00:33 | PROGRESS NOTE ---
DATE: 04/20/2019 SUBJECTIVE: The patient wants to go home. We discussed yesterday with at least the Renal Service based on Dr. Brady recommendation he would need another several days of octreotide, but that is not documented anywhere. There has not been a note since 04/18/2019 in any case. OBJECTIVE: Vital Signs: Blood pressure is 121/65, heart rate of 81, respiratory rate 18, temperature 98 degrees. Cardiovascular: Regular rate and rhythm. Pulmonary: Bilateral breath sounds clear to auscultation. GI: Soft, nontender, nondistended. Bowel sounds are positive. LABORATORY DATA: White count is 5, hemoglobin and hematocrit 7 and 22, platelets of 39,000. Total bilirubin is up to 13.5, which curiously most of it is indirect. INR 3.8. PROBLEM LIST: 1. Clostridium difficile colitis, he is on vancomycin and Dificid day 8. 2. Acute kidney injury that has essentially resolved. Dr. Plascencia has signed off. Recommending Midodrine and octreotide at home. 3. Alcoholic cirrhosis with decompensation. In any case I am waiting on Dr. Gironf to feel that he is stable to go home complete his course of octreotide. We certainly can work on trying to set that up. I will discuss with Social Work to see if that is even feasible. The octreotide was started on 04/16/2019, so today it will be 5 days, we may want to complete 7 days or at least through tomorrow and then anticipate possible discharge. 4. Thrombocytopenia. Anemia is stable, still very low, but stable. I anticipate discharge tomorrow unless GI feels differently. cc: Ward Álvarez MD
[2019-04-21] MEDS: VANCOCIN PO SCH ×2 (03:21→08:09)
[2019-04-21 07:59] LABS: INR 3.43; PROTIME 35.7 Seconds (11.0-16.0)
[2019-04-21] MEDS: PRILOSEC PO SCH (08:09)
[2019-04-21] MEDS: PROAMATINE PO SCH (08:09)
[2019-04-21] MEDS: SANDOSTATIN 500 MICROGM in D5W 100 ML IV SCH (08:10)
[2019-04-21 08:19] LABS: ALBUMIN 2.7 g/dL (3.5-5.0); DIRECT BILIRUBIN 4.4 mg/dL (0.00-0.20); TOTAL PROTEIN 5.4 g/dL (6.3-8.3)
[2019-04-21 08:20] LABS: TOTAL BILIRUBIN 15.76 mg/dL (0.20-1.00)
[2019-04-21 08:26] LABS: AGAP 10; BUN 21 mg/dL (8-22); CHLORIDE 102 mmol/L (98-107); COSMO 275; CREATININE 1.1 mg/dL (0.7-1.2); ESTIMATED GFR > 60; GLUCOSE 102 mg/dL (70-104); POTASSIUM 3.3 mmol/L (3.5-5.1); SODIUM 136 mmol/L (136-145); TCO2 24 mmol/L (25-35)
[2019-04-21 09:22] LABS: HEMATOCRIT 22.8 % (42.0-52.0); MCH 37.6 PG (27-31); MCHC 35.1 g/dL (33-37); RBC 2.13 XMIL (4.7-6.1); RDW 17.7 % (11.5-14.5); WBC 6.41 X1000 (4.8-10.8)
[2019-04-21 09:23] LABS: BASO# 0.07 X1000 (0.0-0.2); BASO% 1.1 % (0.0-0.8); EOS# 0.12 X1000 (0.0-0.7); EOS% 1.9 % (0.0-10.0); LYMPH# 2.32 X1000 (1.2-3.4); LYMPH% 36.2 % (20.5-51.1); MONO# 1.03 X1000 (0.11-0.59); MONO% 16.1 % (1.7-9.3); MPV 10.5 FL (7.4-10.4); NEUT# 2.87 X1000 (1.4-6.5); NEUT% 44.7 % (42.2-75.2)
[2019-04-21 09:28] LABS: BANDS 2 % (0-1); LYMPHS 22 % (21-51); MONO 2 % (1-9); SEGS 74 % (42-75)
[2019-04-21 09:36] LABS: PLT 39 X1000 (130-400)
[2019-04-21 11:58] VITALS: BP 118/57
--- NOTE | 2019-04-22 06:38 | DISCHARGE SUMMARY ---
ADMISSION DATE: 04/12/2019 DISCHARGE DATE: 04/21/2019 CONSULTATIONS: 1. Dr. Plascencia with Nephrology. 2. Dr. Crain with Gastroenterology. PERTINENT PROCEDURES: 1. Chest ultrasound with trace ascites. Paracentesis deferred. 2. Renal ultrasound: Normal exam of the kidneys. 3. Abdominal ultrasound: Cirrhosis with splenomegaly and ascites. Debris in the gallbladder. DISCHARGE DIAGNOSES: 1. C. Difficile colitis. The patient has been on p.o. vancomycin and Dificid day 9. 2. Acute kidney injury that is essentially resolved. Dr. Plascencia has signed off recommending that a drain and octreotide at home. However, I believe the patient finished his drip, and will not require that. 3. Alcoholic cirrhosis with decompensation. The patient has finished his course of octreotide. Dr. Phillips has spoken with Dr. Crain. He feels that he is okay for discharge home today. 4. Thrombocytopenia and anemia stable. At the time of discharge, 8 and 22 which is up from his admission. HOSPITAL COURSE: Briefly, Mr. Qureshi is a 64-year-old male who carries a past medical history of alcohol use, who quit 6 weeks ago, coronary artery disease with history of bypass, followed by Dr. Sylvester, hypertension, hyperlipidemia, and atrial fibrillation. He has been followed closely by GI with Dr. Colbert in 2017. He was diagnosed with cirrhosis of the liver. He had a liver biopsy that year that showed steatosis. EGD was performed in September of 2018 that showed esophageal varices that were banded. He then had a repeat EGD in October of 2018 for re banding of esophageal varices. He did not follow up in Dr. Crain's office after his EGD procedure in October. He was diagnosed with Child class 2 to 3 cirrhosis, and states that he is on the transplant list. He has had 3 episodes of C. Difficile colitis over the past year, and continued to be sick with diarrhea the week of his admission, very little p.o. intake with continued ongoing diarrhea. He went and followed up care through his primary care provider Dr. Mandujano secondary to progressive weakness. His blood pressure was quite low. His systolics was less than 90s. He was directed to the ED where blood pressures were 70s over 50s. His initial creatinine was 3.7, and then increased to 4.9. He was admitted to the hospitalist service with a consult for GI as well as Gastroenterology. He was started on treatment for his C. Difficile colitis. He was initially given IV fluids, and switched to albumin. He was initiated on octreotide and midodrine for his hepatic renal syndrome. Throughout his hospitalization, he has had stable thrombocytopenia as well as anemia for which he received 1 unit of packed red blood cells. His kidney function did improve. He does have adequate urine output. Dr. Plascencia has signed off, and is okay to stop his midodrine and octreotide at the time of his discharge. Dr. Phillips has also spoken with Dr. Crain, and they feel that he is appropriate to be discharged back home today to continue with close follow-up with his office. VITAL SIGNS: At time of discharge, temperature 98.7 degrees, heart rate 73, respirations 18, and blood pressure 118/57. O2 is 100% on room air. DISCHARGE DIET: 2 g sodium diet. DISCHARGE MEDICATIONS: 1. Lipitor 40 mg p.o. daily. 2. Lopressor 50 mg p.o. daily. 3. Protonix 40 mg p.o. daily. 4. Vancomycin 250 mg p.o. q.6 hours for 16 caplets. FOLLOWUP: Mr. Qureshi is being discharged home with self care. He is to follow Dr. Crain closely. He is to take all medications as prescribed. He is to follow up with his primary care provider in the next 7 to 10 days. He can return to the ED or call 911 for any worsening of symptoms. Dictated by YUNI Guadarrama for Gaurav Sierra MD cc: MD Kiet Herr MD Khurshid Yousuf, MD David Francis, MD
== END 2019-04-21 14:34 | disposition home or self-care (01) | DRG 371 ==
LOC: ED 13:45 → SUATTDRO 13:46 → EDIPHOLD 18:33 → 2N 18:47 → 3N 04-19 01:46
PROVIDERS: ATTEND Internal Medicine